=== PATIENT | female | born 1945 | race Caucasian/White ===

== ENCOUNTER 2025-03-31 08:31 | Outpatient (AMB) | payer MEDICARE, MEDICAID, SELFPAY ==
--- NOTE | 2025-03-31 08:34 | A.OFFVIS_ITS ---
Vital Signs 03/31/25 08:35 Height 5 ft 1 in Weight 143 lb BMI 27.0 BP 140/65 H Blood Pressure Location Lt brachial Position Sitting Respiration 16 Pulse 96 Pulse Source Pulse Oximeter Pulse Oximetry (%) 95 Oxygen Delivery Method Room Air Intake Visit Reasons: Back pain Windscreen Fitter Required: No Accompanied by: Daughter Allergies acetaminophen (From Tylenol) Allergy (Mild, Verified 03/31/25 08:43) Unknown amoxicillin Allergy (Mild, Verified 03/31/25 08:42) Unknown aspirin Allergy (Mild, Verified 03/31/25 08:42) Unknown cefaclor (From Ceclor) Allergy (Mild, Verified 03/31/25 08:42) Unknown codeine Allergy (Mild, Verified 03/31/25 08:42) Unknown erythromycin base Allergy (Mild, Verified 03/31/25 08:42) Unknown fleroxacin Allergy (Mild, Verified 03/31/25 08:42) Unknown Iodinated Contrast Media (Contrast Dye) Allergy (Mild, Verified 03/31/25 08:42) Unknown nitrofurantoin (From Macrodantin) Allergy (Mild, Verified 03/31/25 08:42) Unknown Penicillins Allergy (Mild, Verified 03/31/25 08:42) Unknown sulfamethoxazole (From Bactrim) Allergy (Mild, Verified 03/31/25 08:42) Unknown tetracycline Allergy (Mild, Verified 03/31/25 08:42) Unknown trimethoprim (From Bactrim) Allergy (Mild, Verified 03/31/25 08:42) Unknown HPI Comments Details: The patient is a 79-year-old female presenting with chronic thoracic back pain. The pain is located in the middle to upper back, around the bra line, and has been present for a couple of years. The patient reports that the pain initially started around the time she had kidney stones and was septic, but it persisted even after the kidney stones were managed. The pain is exacerbated by sitting and is relieved by lying down. The patient has tried various interventions, including skin care therapist and massage therapy, but has not undergone recent physical therapy. The patient has a history of kidney stones, with two stones currently present but not causing obstruction or significant symptoms. She also has a history of Crohn's disease, which does not interfere with the potential for receiving injections. Currently taking oxycodone 5 mg 3 times daily for her Crohn's disease. - Location: Middle to upper back, around the bra line - Duration: Present for a couple of years - Exacerbating factors: Sitting - Relieving factors: Lying down - Affect: No specific impact on mood or psychological wellbeing discussed - Analgesia: No current pain medications discussed - Adverse Effects: No side effects from pain medications discussed - Activities of Daily Living: Pain affects ability to sit for long periods, requiring lying down during work shifts - Aberrant Drug Related Behaviors: No signs of medication abuse or misuse discussed [facility] Medical History (Updated 03/31/25 @ 12:42 by Lucia Scherer APRN, WORKERS COMPENSATION ADMINISTRATOR) Acute Crohn's disease Small bowel fistula History of gastrectomy Breast cancer, left Diverticulitis S/p small bowel obstruction Medical marijuana use Pulmonary embolism Recurrent UTI Chronic diarrhea Hernia of abdominal cavity GERD (gastroesophageal reflux disease) Breast nodule Surgical History (Updated 03/31/25 @ 09:45 by Bere Castro MA) Hx of ileostomy H/O lithotripsy S/P gastroplasty Hx of appendectomy S/P cholecystectomy S/P lumpectomy of breast History of creation of ostomy Review of Systems Const Details: - Musculoskeletal: Reports chronic back pain, denies tenderness upon palpation - Genitourinary: Reports history of kidney stones, currently not obstructive Physical Exam Vital Signs: Last Vital Signs Pulse 96 03/31/25 08:35 Resp 16 03/31/25 08:35 BP 140/65 H 03/31/25 08:35 Pulse Ox 95 03/31/25 08:35 Oxygen Delivery Method Room Air 03/31/25 08:35 BMI result Body Mass Index 27.0 General: awake, alert, oriented. Answers questions appropriately. Fully engaged in examination. Skin: warm, dry, intact HEENT: Normocephalic. Hearing intact. Cardiac: External chest normal in appearance. Respiratory: No cough, audible wheezing or stridor. Abdomen: without gross distension. MS: No obvious swelling or deformities. Able to stand on bilateral tiptoes and bilateral heels.? Able to transition from sit to stand unassisted. Ambulates with bilaterally normal heel strike and toe off Tenderness to palpation midline thoracic vertebrae and paraspinal muscles Valsalva negative Poor posture Neurological: Oriented to person, place, time and situation. Thought process intact. No gait abnormalities appreciated. Psychiatric: Appropriate mood and affect. Good judgment and insight. Assessment & Plan Assessment & Plan (1) Thoracic back pain: Code(s): M54.6 - Pain in thoracic spine Category: Medical (2) Chronic pain syndrome: Code(s): G89.4 - Chronic pain syndrome Category: Medical (3) Thoracic spondylosis: Code(s): M47.814 - Spondylosis without myelopathy or radiculopathy, thoracic region Category: Medical Plan The plan for managing the patient's chronic back pain includes considering physical therapy as a non-invasive option, which is beneficial for posture and muscle strengthening. If the patient decides to pursue interventional pain management, diagnostic injections may be performed to assess the source of pain, followed by potential therapeutic injections or nerve stimulation if effective. The patient is advised to sign releases for previous imaging studies to be included in her chart, facilitating future treatment decisions. Patient is not interested in discussing or proceeding with injections at this time Order placed for PT eval and treat, patient requesting [facility] in [place] due to proximity to her home. Patient was informed and verbally consented to the use of an ambient scribe for clinic note documentation during this visit. Orders: Orders PT Evaluation and Treatment Today M47.814 - Spondylosis without myelopathy or radiculopathy, thoracic region, M54.6 - Pain in thoracic spine Patient Instructions: - Start physical therapy to help with posture and muscle strengthening. - If interested in injections, contact the clinic to discuss further steps and insurance approval. - Sign releases for previous imaging studies to be included in your chart. Coding Level of Care Code New Pt Level 4 (79632) Complex EM visit Add On G2211 Diagnoses Thoracic back pain M54.6 Chronic pain syndrome G89.4 Thoracic spondylosis M47.814
[2025-03-31 08:35] VITALS: BP 140/65; PULSE 96; RESP 16; O2SAT 95; BMI 27.0
--- OUTSIDE RECORDS SUMMARY | 2025-03-31 08:37 | XMS_ITS | Clinical Summary ---
Author Organization [address] [facility] Address [address] [place] [address] Phone Care Team Providers Care Entry Level Accounting Clerk Name Role Phone Sloan Chinchilla Primary Care Provider [phone] Allergies Active Allergy Reactions Criticality Noted Date Comments Amoxicillin Rash 02/16/2025 Aspirin GI intolerance,Rash,Na usea And Vomiting Low 10/19/2016 Cephalosporins Diarrhea,Other,Rash ,Night sweats Low 05/13/2007 Other Reaction(s): chest palpitations Tolerates Unasyn August 2017 tolerates ceftriaxone Erythromycin Rash Low 09/24/2008 Floxuridine Rash 02/16/2025 Iodinated Contrast Media Anaphylaxis High 10/19/2016 Iodine 06/24/2017 Levofloxacin Rash Low 10/18/2022 Loperamide 04/07/2015 Nitrofurantoin Macrocrystal Rash 02/16/2025 Morphine Shortness of breath High 05/13/2007 causes hallucinations Ofloxacin Rash 05/13/2007 Penicillins Rash Low 05/13/2007 Tolerates Unasyn August 2017 Tolerated amoxicillin test dose and augmentin 10/19/2022 Secobarbital 04/07/2015 Sulfamethoxazole-Trime thoprim Rash Low 07/03/2006 Other reaction(s): Rash Tetracycline Rash 02/16/2025 Tetracyclines Nausea And Vomiting,Rash Low 09/24/2008 Doxycycline Hyclate Rash 02/16/2025 Medications METHOTREXATE ORAL Take by mouth. Activ e inFLIXimab (REMICADE/UNBRA NDED) 100 mg injection Infuse into a venous catheter. Active fluticasone propionate (FLONASE) 50 mcg/actuation nasal spray Administer 1 spray into each nostril 1 (one) time each day. Shake gently. Before first use, prime pump. After use, clean tip and replace cap. Active ascorbic acid/collagen hydr (COLLAGEN SKIN RENEWAL ORAL) Take by mouth. Activ e cyanocobalamin (VITAMIN B-12) 1,000 mcg tablet Take 1 tablet (1,000 mcg total) by mouth 1 (one) time each day. Active MULTIVITAMIN ORAL Take by mouth 1 (one) time each day. Active albuterol HFA (PROAIR HFA ; PROVENTIL HFA ; VENTOLIN HFA) 90 mcg/actuation inhaler Inhale 1 puff by mouth every 4 (four) hours if needed for wheezing. Active calcium citrate-vitamin D 250 mg-2.5 mcg (100 unit) per tablet Take 1 tablet by mouth 1 (one) time each day. Active folic acid (FOLVITE) 400 mcg tablet Take by mouth 1 (one) time each day. Active zinc gluconate 50 mg tablet Take 1 tablet (50 mg total) by mouth 2 (two) times a day. Active cholecalciferol (VITAMIN D-3) 50 mcg (2,000 unit) tablet Take 1 tablet (2,000 Units total) by mouth 1 (one) time each day. Active fexofenadine (PAUL) 60 mg tablet Take 1 tablet (60 mg total) by mouth 2 (two) times a day. Active nystatin (MYCOSTATIN) 100,000 unit/gram powder Apply topically 2 (two) times a day. Active magnesium oxide (MAG-OX) 400 mg magnesium tablet Take 1 tablet (400 mg total) by mouth 1 (one) time each day. Active oxyCODONE (ROXICODONE) 5 mg immediate release tabletIndicatio ns:DX: G89.4 Take 1 tablet (5 mg total) by mouth every 8 (eight) hours. Active vitamin B complex (B COMPLEX-VITAMIN B12 ORAL) Take by mouth 1 (one) time each day. Active pyridoxine (B-6) 100 mg tablet Take 1 tablet (100 mg total) by mouth 1 (one) time each day. Active PUMPKIN SEED EXTRACT ORAL Take by mouth. Ac tive BLACK SEED ORAL Take by mouth. And oregano oil Active Active Problems Problem Noted Date Diagnosed Date Hyperlipidemia 12/31/2023 Osteoarthritis of multiple joints 12/31/2023 Vitamin D deficiency 12/31/2023 Transaminitis 11/06/2022 Steroid-induced hyperglycemia 10/31/2022 Hepatic steatosis 10/25/2022 Low back pain 10/25/2022 Crohn's disease with fistula ([facility] V24, [facility] V28) 10/24/2022 TIA (transient ischemic attack) 11/26/2021 Atelectasis 01/25/2020 Centrilobular emphysema ([facility] V24, [facility] V2 8) 01/25/2020 Pulmonary nodules 02/05/2019 Chronic obstructive pulmonar y disease ([facility] V24, [facility] V28) 12/08/2018 History of partial colectomy 10/10/2018 Mild intermittent asthma with exacerbation 10/10 Pneumonia due to organism 10/10/2018 Protein deficiency ([facility] V24) 10/10/2018 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 Systemic inflammatory respon se syndrome (SIRS) due to non-infectious process without acute organ dysfunction ([facility] V24, [facility] V28) 08/30/2017 Systemic inflammatory respon se syndrome due to infect w organ dysfunc ([facility] V24, [facility] V28) 08/21/2017 Status post skin graft 08/20/2017 Clostridium difficile colitis 08/14/2017 Undernutrition 06/25/2017 Abnormal weight loss 06/20/2017 Adult failure to thrive syndrome 06/20/2017 Fistula of intestine 06/20/2017 Urinary tract infectious disease 06/20/2017 Anemia 05/25/2017 Overview (02/17/2025): Last Assessment & Plan: Follow Open wound of abdomen 05/25/2017 Overview (02/17/2025): Last Assessment & Plan: Patient is now tolerating the wound VAC at reduced vacuum 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 Chronic diarrhea of unknown origin 10/08/2011 Ventral hernia 04/06/2011 Diarrhea 09/24/2008 Diverticulitis of colon 05/13/2007 Overview (02/17/2025): Surgery with colostomy 2004, colostomy reversal 2005. Malignant neoplasm of female breast ([facility] V24, [facility] V28) 05/13/2007 Overview (02/17/2025): history of lumpectomy with negative sentinel node biopsy 2005, left breast. O update Pulmonary embolism and infar ction ([facility] V24, [facility] V28) 05/13/2007 Overview (02/17/2025): history of pulmonary embolism, chronic anticoagulation with warfarin. Encounters Date Type Department Care Team Description 02/17/2025 8:40 AM EDT Consult Gastroenterology - [place] [address] [facility] [address] [place] [address] Ger Stanton MD Enterocutaneous fistula (Primary Dx); Crohn's disease of both small and large intestine with fistula ([facility] V24, [facility] V28); Ventral hernia without obstruction or gangrene from Last 3 Months Surgical History Surgery Date Site/Laterality Comments OTHER SURGICAL HISTORY 09/16/2004 PROCEDURE: IA COLOSTOMY/SKIN LEVEL CECOSTOMY; COMMENT: Bowel resection with colostomy OTHER SURGICAL HISTORY 09/16/2005 PROCEDURE: IA CLOSURE ENTEROSTOMY LG/SMALL INTESTINE; COMMENT: Colostomy closure COLONOSCOPY 09/16/2005 PROCEDURE: HISTORICAL COLONOSCOPY; COMMENT: Performed around the time of her surgeries. BREAST LUMPECTOMY 07/17/2005 PROCEDURE: HISTORICAL BREAST LUMPECTOMY; COMMENT: Node biopsy negative CHOLECYSTECTOMY PROCEDURE: HISTORICAL CHOLECYSTECTOMY APPENDECTOMY PROCEDURE: HISTORICAL APPENDECTOMY OTHER SURGICAL HISTORY PROCEDURE: HISTORY OTHER; COMMENT: Gastroplasty Medical History Medical History Date Comments Diverticulitis of colon (wit hout mention of hemorrhage)(562.11) 05/13/2007 DX:Diverticulitis of co apolinar (without mention of hemorrhage)(562.11); COMMENT: Surgery with colostomy 2004, colostomy reversal 2005. Other pulmonary embolism and infarction 05/13/2007 DX:Other pulmonary embolism and infarction; COMMENT: history of pulmonary embolism, chronic anticoagulation with warfarin. Malignant neoplasm of breast (female), unspecified site 05/13/2007 DX:Malignant neoplasm of br east (female), unspecified site; COMMENT: history of lumpectomy with negative sentinel node biopsy 2006, left breast. Chronic airway obstruction, not elsewhere classified 05/13/2007 DX:Chronic airway obstructio n, not elsewhere classified; COMMENT: emphysema. Breast nodule DX:Breast nodule Family History Medical History Relation Name Comments Other: Heart Disease, Unspecified Father Other: Heart Disease, Unspecified Paternal Grandfather Other: Heart Disease, Unspecified Paternal Grandmother Colon cancer Neg Hx Relation Name Status Comments Father Paternal Grandfather Paternal Grandmother Social History Tobacco Use Types Packs/Day Years Used Date Smoking Tobacco: Former Cigarettes Q uit: 04/04/2005 Smokeless Tobacco: Never Tobacco Cessation:Counseling Given: Not Answered Alcohol Use Standard Drinks/Week Comments No 0 (1 standard drink = 0.6 oz pur e alcohol) Comments Unknown Sex and Gender Information Value Date Recorded Sex Assigned at Not on file Legal Sex Female 7:28 AM EST Gender Identity Not on file Sexual Orientation Not on file Obstetrics History Last Filed Vital Signs Vital Sign Reading Time Taken Comments Blood Pressure 122/62 02/17/2025 8:38 AM EDT Pulse 87 02/17/2025 8:38 AM EDT Temperature - - Respiratory Rate - - Oxygen Saturation 95% 02/17/2025 8:38 AM EDT Inhaled Oxygen Concentration - - Weight 65.7 kg (144 lb 12.8 oz) 025 8:38 AM EDT Height 157.5 cm (5' 2 ) 02/17/2025 8:38 AM EDT Body Mass Index 26.48 02/17/2025 8:38 AM EDT Plan of Treatment Health Maintenance Due Date Last Done Comments COVID-19 Vaccine (#1) 1950 DTaP,Tdap,and Td Vaccines (1 - Tdap) 1964 Hepatitis A Vaccines (1 of 2 - Risk 2-dose series) 1964 Pneumococcal Vaccine: 50+ Years (1 of 2 - PCV) 1964 Zoster Vaccines (1 of 2) 1964 Hepatitis B Vaccines (1 of 3 - Risk 3-dose series) 2005 RSV Immunization Adult Patients (1 - 1-dose 75+ series) 2020 Falls Risk Assessment 08/19/2022 Medicare Annual Wellness Visit 08/19/2022 Osteoporosis Screening (Bone Density Screening) 08/19/2022 Social Influencers of Health Screening 08/19/2022 Depression Screening 09/16/2024 Influenza Vaccine (#1) 2025 06/15/2019 Hypertension/CHF/CAD Annual BMP Blood Test 08/17/2025 08/17/2024, 07/20/2024, 06/22/2024, Additional history exists Cholesterol Screening (Lipid Panel) 10/20/2027 10/20/2022 Hepatitis C Screening Completed 10/20/2022 HIB Vaccines Aged Out No longer eligi ble based on patient's age to complete this topic HPV Vaccines Aged Out No longer eligi ble based on patient's age to complete this topic IPV Vaccines Aged Out No longer eligi ble based on patient's age to complete this topic MMR Vaccines Aged Out No longer eligi ble based on patient's age to complete this topic Meningococcal ACWY Vaccine Aged Out N o longer eligible based on patient's age to complete this topic Meningococcal B Vaccine Aged Out No l onger eligible based on patient's age to complete this topic RSV Immunization Patients Under 20 months Aged Out No longer eligible based on patient's age to complete this topic Varicella Vaccines Aged Out No longer eligible based on patient's age to complete this topic Insurance MEDICAID - [place] MEDICARE Care Teams Entry Level Accounting Clerk Relationship Specialty Start Date End Date Sloan Chinchilla PA [address] [place] [address] PCP - General Physician Health Club Manager 01/13/25
--- OUTSIDE RECORDS SUMMARY | 2025-03-31 08:37 | XMS_ITS | Clinical Summary ---
Author Organization [facility] Address [address] [place] [address] Care Team Providers Care Rn Admission Name Role Phone Unavailable Primary Care Provider Unavailabl e Social History Tobacco Use Types Packs/Day Years Used Date Smoking Tobacco: Never Assessed Comments Unknown Sex and Gender Information Value Date Recorded Sex Assigned at Not on file Legal Sex Female 11:30 PM EDT Gender Identity Not on file Sexual Orientation Not on file Plan of Treatment Health Maintenance Due Date Last Done Comments Hepatitis C Virus Screening 1945 DTaP/Tdap/Td Vaccines (1 - Tdap) 1964 Pneumococcal Vaccines 50+ (1 of 1 - PCV) 11/20/1995 Zoster (Shingles) Vaccine (1 of 2) 11/20/1995 RSV Vaccine 60 years and old er and Patients (1 - 1-dose 75+ series) 2020 COVID-19 Vaccine (2023-2 5 season) 2024 Hepatitis B Vaccines Aged Out No long er eligible based on patient's age to complete this topic
--- OUTSIDE RECORDS SUMMARY | 2025-03-31 08:37 | XMS_ITS ---
Author Name [facility] Organization Unknown Encounters Encounter Type Encounter Reason Primary Diagnosis Location Date Ambulatory [facility] 12/30/2024 Ambulatory [facility] 12/30/2024 Ambulatory [facility] 10/22/2024 Ambulatory [facility] 10/22/2024 Care Team Organization Name Specialty Phone Email Start Date End Da te [facility] 2024
--- OUTSIDE RECORDS SUMMARY | 2025-03-31 08:37 | XMS_ITS | Clinical Summary ---
Author Organization [facility] Address [address] [place] [address] Care Team Providers Care Planning Division Superintendent Name Role Phone Unavailable Primary Care Provider Unavailabl e Allergies Active Allergy Reactions Criticality Noted Date Comments Amoxicillin 05/13/2007 Aspirin 10/19/2016 Cephalosporins 10/19/2016 Tolerates Unasyn August 2017 Codeine Nausea And Vomiting 10/19/2016 Erythromycin Rash Low 10/19/2016 Iodinated Contrast Media 10/19/2016 Loperamide 10/19/2016 Morphine 10/19/2016 Nitrofurantoin 10/19/2016 Ofloxacin 10/19/2016 Penicillins Rash Low 10/19/2016 Tolerates Unasyn August 2017 Secobarbital 10/19/2016 Sulfamethoxazole-Trimetho prim Rash Low 10/19/2016 Tetracyclines & Related Rash Low 10/19/2016 Medications Medication Sig Dispensed Refills Start Date End Date Status vitamin C (ASCORBIC ACID) 500 MG tablet Take 500 mg by mouth. 0 06/20/2017 Active budesonide (PULMICORT) 0.5 MG/2ML nebulizer solutionIndications :Mild intermittent asthma with exacerbation Take 2 mL (0.5 mg total) by nebulization daily. 60 mL 12 09/19/2018 Active ketoconazole (NIZORAL) 2 % creamIndications:Pr uritus ani Apply topically daily. 60 g 0 09/19/2018 Active oxyCODONE (ROXICODONE) 5 MG immediate release tabletIndications:c hronic diarrhea Take 5 mg by mouth 3 (three) times a day. 0 Active magnesium oxide 400 (240 Mg) MG TABS tablet TAKE 1 TABLET BY MOUTH DAILY 28 tablet 0 04/03/2022 Active Active Problems Problem Noted Date Diagnosed Date Hx of abdominal surgery 10/10/2018 Chronic diarrhea 10/10/2018 History of partial colectomy 10/10/2018 Protein deficiency 10/10/2018 Pneumonia due to organism 10/10/2018 Mild intermittent asthma with exacerbation 10/10 Systemic inflammatory respon se syndrome due to infect w organ dysfunc 08/21/2017 Status post skin graft 08/20/2017 Anemia 05/25/2017 Overview: Last Assessment & Plan: Follow Open abdominal wall wound, subsequent encounter 05/25/2017 Overview: Last Assessment & Plan: Patient is now tolerating the wound VAC at reduced vacuum Enterocutaneous fistula 04/29/2017 Overview: Last Assessment & Plan: Stable, surgical follow up. Social History Tobacco Use Types Packs/Day Years Used Date Smoking Tobacco: Never Assessed Social Connection and Isolat ion Panel [NHANES] Answer Date Recorded In a typical week, how many times do you talk on the phone with family, friends, or neighbors? More than three times a week 05/05/2024 How often do you get togethe r with friends or relatives? More than three times a week 05/05/2024 Attends Shinto Services Not on file 05/05 Active Member of Clubs or Organizations Not on f ile 05/05/2024 Attends Club or Organization Meetings Not on zulma e 05/05/2024 Marital Status Not on file 05/05/2024 Overall Financial Resource Strain (CARDIA) Answe r Date Recorded How hard is it for you to pa y for the very basics like food, housing, medical care, and heating? Somewhat hard 05/05/2024 Hunger Vital Sign Answer Date Recorded Within the past 12 months, y ou worried that your food would run out before you got the money to buy more. Sometimes true Within the past 12 months, t he food you bought just didn't last and you didn't have money to get more. Sometimes true PRAPARE - Transportation Answer Date Re corded In the past 12 months, has l ack of transportation kept you from medical appointments or from getting medications? No 04/17 In the past 12 months, has l ack of transportation kept you from meetings, work, or from getting things needed for daily living? No 05/05/2024 Sex and Gender Information Value Date Recorded Sex Assigned at Female 09/19/2018 1:03 PM EST Gender Identity Female 09/19/2018 1:03 PM EST Sexual Orientation Straight 09/19/2018 1: 03 PM EST Last Filed Vital Signs Vital Sign Reading Time Taken Comments Blood Pressure 110/70 10/10/2018 12:37 PM EST Pulse 96 10/10/2018 12:37 PM EST Temperature - - Respiratory Rate 16 10/10/2018 12:3 7 PM EST Oxygen Saturation 93% 09/19/2018 1:00 PM EST room air Inhaled Oxygen Concentration - - Weight 69.8 kg (153 lb 12.8 oz) 019 12:37 PM EST Height 156.2 cm (5' 1.5 ) 10/10/2018 12 :37 PM EST Body Mass Index 28.59 10/10/2018 12:37 PM EST Plan of Treatment Health Maintenance Due Date Last Done Comments COVID-19 Vaccine (#1) 05/22/1946 Pneumococcal Vaccine (1 of 2 - PCV) 11/20/1951 Depression Screening 1957 Preventative Health Evaluation 11/20/1963 DTap / Tdap / Td (1 - Tdap) 1964 Shingrix-Zoster Vaccine (1 of 2) 11/20/1995 Fall Risk Assessment 2010 Osteoporosis Screening (DEXA Scan) 2010 RSV Adult > 60+ Yrs or Pregn ant (1 - 1-dose 75+ series) 2020 Influenza Vaccine (#1) 2025 Hepatitis C Screening Completed 10/20/2022 Hepatitis B Vaccines Aged Out No long er eligible based on patient's age to complete this topic RSV Ped < 20 months Aged Out No longe r eligible based on patient's age to complete this topic
--- OUTSIDE RECORDS SUMMARY | 2025-03-31 08:37 | XMS_ITS | Patient Health Record ---
[facility] [address] Address [address] [place] [address] Care Team Providers Care Manager Surgery Name Role Phone CINTRONLOYDA VÁSQUEZ Primary Care Provider SLOAN GARCIA Unavailable [phone] RAAD CAMPBELL Unavailable [phone] XENA BERGERON Unavailable [phone] Allergies Allergen (clinical drug ingredient) Drug/Non Drug Allergy documented on EMR Reaction Allergy Type Onset Date Status aspirin Aspirin Unknown Drug Allergy Active sulfamethoxazole / trimethoprim Bactrim rash Drug Allergy Active erythromycin Erythromycin rash Drug Allergy A ctive Floxin Otic rash Drug Allergy Activ e floxuridine Floxuridine rash Drug Allergy Act carmen Levaquin rash Drug Allergy Active nitrofurantoin Macrodantin rash Drug Allergy Active morphine Morphine Sulfate shortness of breath Drug Allergy Active penicillin G Penicillin G Sodium rash Drug Allergy Active tetracycline Tetracycline HCl rash Drug Allergy Active Vibramycin rash Drug Allergy Active Contrast Allergy PreMed Pack sob Drug Allergy Active amoxicillin Amoxicillin rash Drug Allergy Act carmen tetracycline Tetracycline rash Drug Allergy A ctive Results Component Value Reference Range Notes Comp. Metabolic Panel (14)-3 [id number] Reviewed date:02/05/2025 09:04:15 AM Interpretation: Performing Lab:Kat Soto, [address], [place], Phone - [phone], Director - Hakan Notes/Report: Glucose 92 70-99 mg/dL BUN 17 8-27 mg/dL Creatinine 1.28 0.57-1.00 mg/dL eGFR 43 >59 mL/min/1.73 BUN/Creatinine Ratio 13 12-28 Sodium 142 134-144 mmol/L Potassium 4.3 3.5-5.2 mmol/L Chloride 108 96-106 mmol/L Carbon Dioxide, Total TNP Test n ot performed. Deterioration occurred during specimen handling. Calcium 9.2 8.7-10.3 mg/dL Protein, Total 7.7 6.0-8.5 g/dL Albumin 3.6 3.8-4.8 g/dL Globulin, Total 4.1 1.5-4.5 g/dL Bilirubin, Total <0.2 0.0-1.2 mg/dL Alkaline Phosphatase 111 44-121 IU/L AST (SGOT) 23 0-40 IU/L ALT (SGPT) 14 0-32 IU/L Lipid Panel-[id number] Reviewed date:02/05/2025 08:08:08 AM Interpretation: Performing Lab:Kat Soto, [address] [facility], Phone - [phone], Director - MDJodry Notes/Report: Cholesterol, Total 130 100-199 mg/dL Triglycerides 153 0-149 mg/dL HDL Cholesterol 43 >39 mg/dL VLDL Cholesterol [place] 26 5-40 mg/dL LDL Chol Calc (NIH) 61 0-99 mg/dL CBC With Differential/Platel et-[id number] Reviewed date:02/05/2025 08:07:59 AM Interpretation: Performing Lab:Kat Soto, [address] [place] [address], [place], Phone - [phone], Director - MDJodry Notes/Report: WBC 8.6 3.4-10.8 x10E3/uL RBC 4.85 3.77-5.28 x10E6/uL Hemoglobin 11.8 11.1-15.9 g/dL Hematocrit 38.2 34.0-46.6 % MCV 79 79-97 fL MCH 24.3 26.6-33.0 pg MCHC 30.9 31.5-35.7 g/dL RDW 15.7 11.7-15.4 % Platelets 276 150-450 x10E3/uL Neutrophils 61 Not Estab. % Lymphs 25 Not Estab. % Monocytes 8 Not Estab. % Eos 5 Not Estab. % Basos 1 Not Estab. % Neutrophils (Absolute) 5.3 1.4-7.0 x10E3/uL Lymphs (Absolute) 2.1 0.7-3.1 x10E3/uL Monocytes(Absolute) 0.6 0.1-0.9 x10E3/uL Eos (Absolute) 0.5 0.0-0.4 x10E3/uL Baso (Absolute) 0.1 0.0-0.2 x10E3/uL Immature Granulocytes 0 Not Estab. % Immature Grans (Abs) 0.0 0.0-0.1 x10E3/uL Urinalysis, Complete-[id number] Reviewed date:07/09/2024 08:09:26 AM Interpretation: Performing Lab[facility], [address] [place] [address], Phone - [phone], Director - MDJodry Notes/Report: Specific [place] 1.021 1.005-1.030 pH 5.5 5.0-7.5 Urine-Color Yellow Yellow Appearance Clear Clear WBC Esterase 2+ Negative Protein Trace Negative/Trace Glucose Negative Negative Ketones Negative Negative Occult Blood Negative Negative Bilirubin Negative Negative Urobilinogen,Semi-Qn 0.2 0.2-1.0 mg/dL Nitrite, Urine Negative Negative Microscopic Examination See below: Micr oscopic was indicated and was performed. WBC >30 0 - 5 /hpf RBC None seen 0 - 2 /hpf Epithelial Cells (non renal) 0-10 0 - 10 /hpf Casts None seen None seen /lpf Bacteria None seen None seen/Few Urinalysis, Complete-[id number] Reviewed date:02/05/2025 08:08:08 AM Interpretation: Performing Lab:[facility] [address], Phone - [phone], Director - MDdry Notes/Report: Specific [place] 1.017 1.005-1.030 pH 5.5 5.0-7.5 Urine-Color Yellow Yellow Appearance Clear Clear WBC Esterase 1+ Negative Protein 1+ Negative/Trace Glucose Negative Negative Ketones Negative Negative Occult Blood Negative Negative Bilirubin Negative Negative Urobilinogen,Semi-Qn 0.2 0.2-1.0 mg/dL Nitrite, Urine Negative Negative Microscopic Examination See below: Micr oscopic was indicated and was performed. WBC 6-10 0 - 5 /hpf RBC 0-2 0 - 2 /hpf Epithelial Cells (non renal) 0-10 0 - 10 /hpf Casts None seen None seen /lpf Crystals Present N/A Crystal Type Calcium Oxalate N/A Bacteria None seen None seen/Few Hemoglobin [id number] Reviewed date:02/05/2025 08:08:08 AM Interpretation: Performing Lab:[facility] [place], [address] [place] [address], Phone - [phone], Director - Katelyny Notes/Report: Hemoglobin A1c 6.2 4.8-5.6 % . Prediabetes: 5.7 - 6.4 Diabetes: >6.4 Glycemic control for adults with diabetes: <7.0 Comp. Metabolic Panel (14)-3 Reviewed date:06/15/2024 07:56:00 AM Interpretation: Performing Lab:[facility] [place], [address] [place] [address], Phone - [phone], Director - Katelyny Notes/Report: Glucose 114 70-99 mg/dL BUN 24 8-27 mg/dL Creatinine 1.00 0.57-1.00 mg/dL eGFR 58 >59 mL/min/1.73 BUN/Creatinine Ratio 24 12-28 Sodium 140 134-144 mmol/L Potassium 4.5 3.5-5.2 mmol/L Chloride 105 96-106 mmol/L Carbon Dioxide, Total 16 20-29 mmol/L Calcium 9.1 8.7-10.3 mg/dL Protein, Total 7.8 6.0-8.5 g/dL Albumin 4.0 3.8-4.8 g/dL Globulin, Total 3.8 1.5-4.5 g/dL Bilirubin, Total <0.2 0.0-1.2 mg/dL Alkaline Phosphatase 101 44-121 IU/L AST (SGOT) 36 0-40 IU/L ALT (SGPT) 27 0-32 IU/L Prealbumin-[id number] Reviewed date:06/15/2024 07:55:43 AM Interpretation: Performing Lab:[facility], [place], Phone - [phone], Director - Hakan Notes/Report: Prealbumin 15 9-32 mg/dL CBC With Differential/Platel et-[id number] Reviewed date:06/15/2024 07:55:53 AM Interpretation: Performing Lab:[facility], [place], Phone - [phone], Director - Katelyny Notes/Report: WBC 9.1 3.4-10.8 x10E3/uL RBC 4.38 3.77-5.28 x10E6/uL Hemoglobin 11.8 11.1-15.9 g/dL Hematocrit 38.6 34.0-46.6 % MCV 88 79-97 fL MCH 26.9 26.6-33.0 pg MCHC 30.6 31.5-35.7 g/dL RDW 14.5 11.7-15.4 % Platelets 198 150-450 x10E3/uL Neutrophils 52 Not Estab. % Lymphs 35 Not Estab. % Monocytes 8 Not Estab. % Eos 4 Not Estab. % Basos 1 Not Estab. % Neutrophils (Absolute) 4.8 1.4-7.0 x10E3/uL Lymphs (Absolute) 3.2 0.7-3.1 x10E3/uL Monocytes(Absolute) 0.7 0.1-0.9 x10E3/uL Eos (Absolute) 0.4 0.0-0.4 x10E3/uL Baso (Absolute) 0.1 0.0-0.2 x10E3/uL Immature Granulocytes 0 Not Estab. % Immature Grans (Abs) 0.0 0.0-0.1 x10E3/uL Magnesium-[id number] Reviewed date:06/15/2024 07:55:43 AM Interpretation: Performing Lab:Kat Soto, [address] [place] [address], Phone - [phone], Director - MDJodry Notes/Report: Magnesium 1.7 1.6-2.3 mg/dL Triglycerides-[id number] Reviewed date:06/15/2024 07:55:43 AM Interpretation: Performing Lab:Kat Soto [address] [place] [address], Phone - [phone], Director - MDJodry Notes/Report: Triglycerides 92 0-149 mg/dL Phosphorus-[id number] Reviewed date:06/15/2024 07:55:43 AM Interpretation: Performing Lab:Kat Soto, [address] [place] [address], Phone - [phone], Director - MDJodry Notes/Report: Phosphorus 4.1 3.0-4.3 mg/dL Reason For Referral Reason ATI neck and back pa in Diagnosis 1 Neck pain (M54.2) Diagnosis 2 Acute back pain, uns pecified back location, unspecified back pain laterality (M54.9) Referral Organization [facility] [address] Referring Provider First Name RAAD Referring Provider Last Name PARNELL Referring Provider Speciality Preventive Medicine Referred Provider Specialty Physical The rapist General Notes [address] [facility] [address]. Titus Bravo, (p) [phone], (f) [phone] Clinical Notes Roxanne Mcgarry 11:20:25 AM > faxed referral Referral Priority Routine Reason evaluate & treat Diagnosis 1 Oral mucositis (ulce rative), unspecified (K12.30) Referral Organization [facility] [address] [facility] Referring Provider First Name SLOAN Referring Provider Last Name RADHA Referring Provider Speciality Internal edicine Referred Provider Specialty Oral Surgery Clinical Notes Ana Moreno 08/17 09:38:47 AM > faxed pt info to surgery dept at [facility]. f) [phone] p) [phone], Ana Moreno 09/08/2024 11:30:50 AM > [facility] does not have oral surgery, so refaxed pt info to [facility] in [place]. p) [phone] f) [phone], Rachele Pierce 09/29/2024 03:06:51 PM > I called the office, and they informed me that they spoke with the patient on 09/14/24. She declined to schedule an appointment at that time, stating that she was currently in the hospital and would call back when able. However, she has not followed up yet Referral Priority Routine Reason [facility] Diagnosis 1 Atherosclerosis (I70 .90) Referral Organization [facility] Referring Provider First Name SLOAN Referring Provider Last Name RADHA Referring Provider Speciality Internal edicine Referred Provider Specialty [facility] General Notes MARGAUX SLOAN 09/08 09:03:14 AM > referral faxed [phone] Referral Priority Routine Reason evaluate. ? 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 f) [phone] p) [phone], Josh Ana 12/18/2024 01:37:02 PM > pt scheduled for 01-04-25 @ 8:40am in [place] with Macy Stevens PA. Referral Priority Routine Reason evaluate & treat. PC P would like a letter of recommendation regarding proper treatment. Diagnosis 1 Crohn's disease with fistula, unspecified gastrointestinal tract location (K50.913) Referral Organization [facility] Referring Provider First Name SLOAN Referring Provider Last Name RADHA Referring Provider Speciality Internal edicine Referred Provider Specialty Gastroentero logy Clinical Notes Josh Ana 12/17 08:37:30 AM > faxed pt info to Dr. Chance's office. p) [phone] f) [phone], Dion Ortiz 01/19/2025 03:56:19 PM > Spoke with Aidee, booked on February 17 8:30AM Referral Priority Routine Reason Evaluate & Treat P ain Management Recommend steroid injections Diagnosis 1 Arthritis of hand, r ight (M19.041) Diagnosis 2 Back pain, unspecifi ed back location, unspecified back pain laterality, unspecified chronicity (M54.9) Referral Organization [facility] Referring Provider First Name SLOAN Referring Provider Last Name RADHA Referring Provider Speciality Internal edicine Referred Provider Specialty Pain Medicin e General Notes Candis Valladares 0 03/24/2025 10:23:10 AM > Referral to [facility] and faxed, p. , f. [phone] Clinical Notes Candis Valladares 0 03/26/2025 10:22:04 AM > Refaxed Referral Priority Routine Reason Evaluate & Treat Diagnosis 1 Dietary counseling ( Z71.3) Referral Organization [facility] Referring Provider First Name SLOAN Referring Provider Last Name RADHA Referring Provider Speciality Internal edicine Referred Provider Specialty Nutrition General Notes Candis Valladares 0 03/24/2025 10:23:59 AM > Referral to [facility] and faxed, p. [phone], f. [phone] Referral Priority Routine Medications Medication SIG (Take, Route, Frequency, Duration) Notes Start Date End Date Status Fexofenadine HCl 60 MG 1 tablet Orally Twice a day; Duration: 90 days 03/24/2025 Active Vitamin D3 50 MCG (2000 UT) 1 tablet Orally Once a day; Duration: 30 days 07/22/2024 Active Vitamin D3 50 MCG (2000 UT) TAKE (1) CAPSULE BY MOUTH DAILY Active Lidocaine 5 % 1 patch as needed Externally Four times a day; Duration: 15 days 01/05/2025 Active Fluticasone Propionate Active Vitamin B12 1000 MCG 1 tablet Orally Onc e a day; Duration: 90 days Active Nystop 822673 UNIT/GM APPLY 1 APPLICATIO N TOPICALLY TWICE A DAY Active Collagen Active Albuterol Sulfate HFA 108 (90 Base) MCG/ACT 1 puff as needed Inhalation every 4 hrs; Duration: 30 days Active Calcium Citrate-Vitamin D 250-2.5 MG-MCG 1 tablet Orally Once a day; Duration: 90 days 12/20/2022 Active Magnesium Oxide -Mg Supplement 400 (240 Mg) MG TAKE 1 TABLET BY MOUTH ONCE DAILY Active Multivitamin - TAKE 1 TABLET BY MOUTH DAILY. Active oxyCODONE HCl 5 MG 1 tablet as needed Orally - PARTIAL REFILL UPON PATIENT REQUEST every 8 hrs dx: g89.4; Duration: 30 days Partial Fill upon Patient Request 03/10/2025 Active Zinc Gluconate 50 MG TAKE 2 TABLETS BY MOUTH ONCE DAILY. Active Multivitamin - 5 ml Orally Once a day; Duration: 30 day(s) Active Immunizations Vaccine Route Administration Date Status Comme nts Influenza, high dose seasonal IM Intramuscular 06/15/2019 Administered Social History Tobacco Use: Social History Observation Description Date Details (start date - stop date) Former Smoker NA - NA Tobacco Use/Smoking Question Answer Notes Are you a former smoker Section Notes: Quit Smoking 2004 about 2 pk s a day Quit Smoking 2004 about 2 pks a day about 50 years. ETOH Use: declines Tob Use: declines Drug Use: marijuana for sleep, smoking Caffeine Use: declines Smoke detectors in home: Yes Seatbelt use: Yes Living with her daughter, feels safe at home. Quit Smoking 2004 about 2 pk s a day Quit Smoking 2004 about 2 pk s a day Quit Smoking 2004 about 2 pk s a day Quit Smoking 2005 about 2 pk s a day Quit Smoking 2005 about 2 pk s a day Quit Smoking 2005 about 2 pk s a day Quit Smoking 2005 about 2 pk s a day Quit Smoking 2005 about 2 pk s a day Quit Smoking 2005 about 2 pk s a day Quit Smoking 2005 about 2 pk s a day Quit Smoking 2005 about 2 pk s a day Quit Smoking 2005 about 2 pk s a day Quit Smoking 2005 about 2 pk s a day Quit Smoking 2005 about 2 pk s a day Quit Smoking 2005 about 2 pk s a day Quit Smoking 2005 about 2 pk s a day Quit Smoking 2005 about 2 pk s a day Quit Smoking 2005 about 2 pk s a day Quit Smoking 2005 about 2 pk s a day Quit Smoking 2005 about 2 pk s a day Problems Problem Type SNOMED Code ICD Code Onset Dates Problem Status W/U Status Risk Notes Problem Mixed hyperlipidemia (353816206) Mixed hyperlipidemia (E78.2) Active confirmed Problem Chronic pain (08026359) Other chronic pain (G89.29) Active confirmed Problem Essential hypertension (51513569) Essential (primary) hypertension (I10) Active confirmed Problem Chronic sinusitis (88722234) Chronic sinusitis, unspecified (J32.9) Active confirmed Problem Emphysema (85878520) Emphysema, unspecified (J43.9) Active confirmed Problem Inflammatory condition of oral mucous membrane (46590512) Oral mucositis (ulcerative), unspecified (K12.30) Active confirmed Problem Gastro-esophageal reflux disease without esophagitis (646018510) Gastro-esophageal reflux disease without esophagitis (K21.9) Active confirmed Problem Fatty liver (267933446) Fatty (change of) liver, not elsewhere classified (K76.0) Active confirmed Problem Localized, primary osteoarthritis of the hand (958153897) Unilateral primary osteoarthritis of first carpometacarpal joint, right hand (M18.11) Active confirmed Problem Backache (069402629) Dorsalgia, unspecified (M54.9) Active confirmed Problem Pain in right foot (532924017899793) Pain in right foot (M79.671) Active confirmed Problem Pain in left foot (140866843027586) Pain in left foot (M79.672) Active confirmed Problem Screening for malignant neoplasm of breast (152099033) Encounter for screening mammogram for malignant neoplasm of breast (Z12.31) Active confirmed Problem Backache (976954409) Back pain, unspecified back location, unspecified back pain laterality, unspecified chronicity (M54.9) Active confirmed Problem Neck pain (10083989) Neck pain (M54.2) Active c onfirmed Problem Hyperlipidaemia (71643280) Hyperlipidemia, unspecified hyperlipidemia type (E78.5) Active confirmed Problem Adult health examination (257916567) Adult general medical exam (Z00.00) Active confirmed Problem Diabetes mellitus screening (288700455) Diabetes mellitus screening (Z13.1) Active confirmed Problem Transient ischemic attack (143958661) TIA (transient ischemic attack) (G45.9) Active confirmed Problem Chronic diarrhea (730964781) Chronic diarrhea (K52.9) Active confirmed Problem COPD - Chronic obstructive pulmonary disease (68885494) Chronic obstructive pulmonary disease, unspecified COPD type (J44.9) Active confirmed Problem Localized, primary osteoarthritis of the pelvic region and thigh (742663432) Osteoarthritis of both hips, 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) Active confirmed Problem Osteoarthritis of multiple joints (071219866) Osteoarthritis of multiple joints, unspecified osteoarthritis type (M15.9) Active confirmed Problem Atherosclerosis (00654710) Atherosclerosis (I70.90) Active confirmed Problem Irregular heart beat (618144997) Irregular heart beat (I49.9) Active confirmed Problem Hypertriglyceridemia (964328579) Hypertriglyceridemia (E78.1) Active confirmed Problem Screening for osteoporosis (876288406) Screening for osteoporosis (Z13.820) Active confirmed Problem Muscle cramp (28714503) Muscle cramp (R25.2) Active confirmed Problem Backache (441904690) Acute back pain, unspecified back location, unspecified back pain laterality (M54.9) Active confirmed Problem Low back pain (497724259) Low back pain, unspecified (M54.50) Active confirmed Problem Crohn's disease (23615782) Crohn's disease with complication, unspecified gastrointestinal tract location (K50.919) Active confirmed Problem Crohn's disease with fistula, unspecified gastrointestinal tract location (K50.913) Active confirmed Problem Vitamin D deficiency (89645299) Vitamin D3 deficiency (E55.9) Active confirmed Problem Anemia screening (366259760) Screening for deficiency anemia (Z13.0) Active confirmed Problem Localized, primary osteoarthritis of the hand (479635528) Arthritis of hand, right (M19.041) Active confirmed Problem Ulcer of mouth (disorder) (15157970) Mouth sore (K13.79) Active confirmed Vital Signs Heart Rate 83 /min 03/24/2025 Temperature 98 degrees Fahrenheit 06/08/2024 Blood pressure diastolic 60 mm Hg 03/24/2025 Oximetry 96 % 03/24/2025 Height 61 in 03/24/2025 Blood pressure systolic 118 mm Hg 03/24/2025 Weight 144.8 lbs 03/24/2025 BMI 27.36 kg/m2 03/24/2025 Encounters Encounter Location Date Provider Diagnosis [facility] [address] [place] [address] 06/08/2024 SLOAN CHANGNER Diarrhea, unspecifie d R19.7 ; Crohn's disease with fistula, unspecified gastrointestinal tract location K50.913 ; Under care of ostomy nurse Z78.9 ; On total parenteral nutrition (TPN) Z78.9 ; Pain in thoracic spine M54.6 ; Other chronic pain G89.29 and Dysuria R30.0 [facility] [address] [place] [address] 07/21/2024 RAAD SHANNAN Mouth sore K13.79 ; Crohn's disease with complication, unspecified gastrointestinal tract location K50.919 ; Chronic diarrhea K52.9 ; Other chronic pain G89.29 ; Low back pain, unspecified M54.50 and Osteoarthritis of both hips, unspecified osteoarthritis type M16.0 [facility] [address] [place] [address] 09/04/2024 SLOAN GARCIA Diarrhea, unspecifie d R19.7 ; Oral ulcer K12.1 ; Crohn's disease with fistula, unspecified gastrointestinal tract location K50.913 ; Under care of ostomy nurse Z78.9 ; On total parenteral nutrition (TPN) Z78.9 ; Pain in thoracic spine M54.6 ; Other chronic pain G89.29 ; Back pain, unspecified back location, unspecified back pain laterality, unspecified chronicity M54.9 and Hordeolum externum of left lower eyelid H00.[address] [facility] [address] [place] [address] 12/14/2024 SLOAN GARCIA Irregular heart beat I49.9 ; Crohn's disease with fistula, unspecified gastrointestinal tract location K50.913 ; Diarrhea, unspecified R19.7 ; Under care of ostomy nurse Z78.9 ; On total parenteral nutrition (TPN) Z78.9 ; Other chronic pain G89.29 and Back pain, unspecified back location, unspecified back pain laterality, unspecified chronicity M54.[address] [facility] [address] [place], [place] 03/24/2025 SLOAN GARCIA Crohn's disease with fistula, unspecified gastrointestinal tract location K50.913 ; Adult general medical exam Z00.00 ; Irregular heart beat I49.9 ; Under care of ostomy nurse Z78.9 ; Other chronic pain G89.29 ; Prediabetes R73.03 ; Hypertriglyceridemia E78.1 and Encounter for examination of blood pressure without abnormal findings Z01.[address] [facility] [address] [place], [place] 03/31/2025 LOYDA CINTRON [facility] [address] [facility] [address] [place], [place] 04/22/2024 SLOAN GARCIA Diarrhea, unspecifie d R19.[address] [facility] [address] [place], [place] 05/25/2024 SLOAN GARCIA Diarrhea, unspecifie d R19.[address] [facility] [address] [place], [place] 06/22/2024 SLOAN GARCIA Diarrhea, unspecifie d R19.[address] [facility] [address] [place], [place] 06/30/2024 SLOAN GARCIA [facility] [address] [place] [address] 07/17/2024 SLOAN GARCIA [facility] [address] [facility] [address] [place], [place] 07/21/2024 LOYDA CINTRON [facility] [address] [facility] [address] [place], [place] 07/22/2024 SLOAN GARCIA Diarrhea, unspecifie d R19.[address] [facility] [address] [place] [address] 07/28/2024 RAAD CAMPBELL [facility] [address] [place] [address] 08/26/2024 SLOAN GARCIA Diarrhea, unspecifie d R19.7 [facility] [address] [facility] [address] [place] [address] 09/05/2024 XENA BERGERON [facility] [address] [place], [place] 09/08/2024 SLOAN GARCIA [facility] [address] [place], [place] 09/28/2024 SLOAN GARCIA Diarrhea, unspecifie d R19.[address] [facility] [address] [place], [place] 11/09/2024 SLOAN GARCIA Diarrhea, unspecifie d R19.[address] [facility] [address] [place] [address] 11/18/2024 SLOAN GARCIA [facility] [address] [facility] [address] [place] [address] 12/07/2024 SLOAN GARCIA Diarrhea, unspecifie d R19.[address] [facility] [address] [place], [place] 01/05/2025 TALAL CINTRON [facility] [address] [facility] [address] [place] [address] 01/08/2025 SLOAN GARCIA Diarrhea, unspecifie d R19.7 [facility] [address] [facility] [address] [place] [address] 01/12/2025 SLOAN GARCIA [facility] [address] [place] 01/12/2025 TALAL CINTRON [facility] [address] [place], [place] 01/29/2025 TALAL CINTRON Diarrhea, unspecifie d R19.[address] [facility] [address] [place], [place] 02/09/2025 SLOAN GARCIA Diarrhea, unspecifie d R19.[address] [facility] [address] [place] [address] 03/10/2025 SLOAN GARCIA Diarrhea, unspecifie d R19.[address] [facility] [address] [place] [address] 03/24/2025 MARIA GANABELLE LINDA Pain in thoracic spi ne M54.[address] [facility] [address] [facility] [place] [address] 03/30/2025 LOYDA CINTRON Assessments Encounter Date Diagnosis (ICD Code) Assessment Notes Treatment Notes Treatment Clinical Notes Section Notes 04/22/2024 Diarrhea, unspecifie d (ICD-10 - R19.7) 05/25/2024 Diarrhea, unspecifie d (ICD-10 - R19.7) 06/08/2024 Diarrhea, unspecifie d (ICD-10 - R19.7) # Ostomy care: Recommended following with gastroenterology/nu rse for this.She does admit to occasional leakage. # Following with specialist to fit dentures properly. # Colitis following with gastroenterology, on methotrexate, infliximab, TPN still in place.Using Aquaphor on ostomy site due to dryness/redness of skin. # Seasonal allergies: On fluticasone, cetirizine # Chronic diarrhea: on oxycodone, recommended by gastroenterology for chronic diarrhea, requesting refill today. [employer] reviewed. Controlled substance contract signed 12/05/2023 # Back pain: Will order x-ray, potentially consider orthopedic referral/pain specialist referral. Discussed conservative treatments. Already on oxycodone for diarrhea.Ordered this back in February for which patient did not obtain. Will reorder image. # Asthma: Takes albuterol as needed # Nystatin powder as needed rash # History of breast cancer, controlled, gets mammograms annually.Ordered today. # UTI symptoms: Urine dip positive for leukocytes. Was recently in the emergency department at [facility] on 05/04/2024. Consistent for UTI treated with Doxy. Patient notes some resolved symptoms but does not physically completely cleared. Urine dip in office consistent with UTI. Will extend course of doxycycline as patient has many antibiotic allergies. Send urine off for culture. Repeat urine post antibiotic use to ensure resolution of infection. 06/08/2024 Crohn's disease with fistula, unspecified gastrointestinal tract location (ICD-10 - K50.913) # Ostomy care: Recommended following with gastroenterology/nu rse for this.She does admit to occasional leakage. # Following with specialist to fit dentures properly. # Colitis following with gastroenterology, on methotrexate, infliximab, TPN still in place.Using Aquaphor on ostomy site due to dryness/redness of skin. # Seasonal allergies: On fluticasone, cetirizine # Chronic diarrhea: on oxycodone, recommended by gastroenterology for chronic diarrhea, requesting refill today. [employer] reviewed. Controlled substance contract signed 12/05/2023 # Back pain: Will order x-ray, potentially consider orthopedic referral/pain specialist referral. Discussed conservative treatments. Already on oxycodone for diarrhea.Ordered this back in February for which patient did not obtain. Will reorder image. # Asthma: Takes albuterol as needed # Nystatin powder as needed rash # History of breast cancer, controlled, gets mammograms annually.Ordered today. # UTI symptoms: Urine dip positive for leukocytes. Was recently in the emergency department at [facility] on 05/04/2024. Consistent for UTI treated with Doxy. Patient notes some resolved symptoms but does not physically completely cleared. Urine dip in office consistent with UTI. Will extend course of doxycycline as patient has many antibiotic allergies. Send urine off for culture. Repeat urine post antibiotic use to ensure resolution of infection. 06/22/2024 Diarrhea, unspecifie d (ICD-10 - R19.7) 07/21/2024 Crohn's disease with complication, unspecified gastrointestinal tract location (ICD-10 - K50.919) Isamar is a 78-year-old female with a PMH of Crohn's disease with persistent diarrhea, seasonal allergies, chronic back pain, osteoarthritis, asthma, previous breast cancer that presents for evaluation of sore in her mouth x3 weeks. #Mouth sore: Patient reports she developed a mouth sore after having molds taken at the dentist approximately 3 weeks ago. On exam there is an ulcer located medially on the lower gumline. It is small and without visible discharge or bleeding. Rx for 4% oral topical lidocaine sent to pharmacy. The patient is encouraged to apply small amount to the affected area up to three times daily as needed for pain. The patient understands not to swallow this medication. There is potential for cross-reactivity due to allergies to Bactrim, morphine, and erythromycin (ingredient benzyl alcohol). Discussed this with the patient, She feels comfortable taking this medication especially given she takes daily cetirizine. She is encouraged to follow-up with the pharmacist to discuss risk for cross reactivity given common ingredient. If the patient chooses not to use topical lidocaine, she is encouraged to continue symptomatic treatment with antimicrobial mouthwashes and salt water gargles. Furthermore the patient is encouraged to follow-up with her dentist office as scheduled to receive properly fitting dentures. #Crohn's/chronic diarrhea: PMH of Crohn's disease, follows with surgery assistant Dr. Tristan Muñoz with [facility]. Receives infliximab infusions once monthly via PICC line for treatment. Additionally the patient has informed to me that she takes oxycodone 10 mg every morning and 5 mg every afternoon for treatment of chronic diarrhea per reccomendation of GI. Prior to starting this regimen she reports as high as 32 episodes of diarrhea daily. On her current regimen she occasionally has stool incontinence overnight. Reports this is problematic as she is prone to treatment resistant UTIs. Interested in 1 additional 5 mg dose of oxycodone daily. As is my first time meeting the patient discussed that I cannot change her current regimen. The patient is encouraged to address this issue with Dr. Hudson and discuss alternative treatment options for diarrhea. #Chronic back pain/osteoarthritis : Patient reports history of chronic back pain osteoarthritis. Denies new/worsening back pain. ROM unchanged. Aside from bowel incontinence secondary to Crohn's disease, denies other bowel/bladder dysfunction. No saddle paresthesias. Takes vitamin D and calcium daily, requesting prescriptions at the patient does not have to pay for these medications. Explained that prescription can be sent, however that does not guarantee that insurance will cover them as they are available OTC. Additionally need to clarify dosing of medication prior to sending refills. Patient will call office to provide doses of calcium and vitamin D. Denies taking combination pill. Patient is unclear on what imaging has been performed of her back and is interested in additional imaging. The patient is encouraged to schedule an additional appointment to address back pain. Furthermore she is encouraged to consider physical therapy -referral provided last year by her PCP Sloan Garcia PA-C. New referral provided today. All questions answered to the patient's satisfaction. Patient demonstrates understanding of diagnosis and treatments discussed. Follow-up at next scheduled appointment, sooner should any questions/concerns arise. Case discussed with collaborating physician Oleg Cintron who has reviewed the assessment/plan. Chart, medications, labs, and vital signs reviewed. Dictation completed with the use of [employer] voice recognition software, prone to medical misidentifications and grammatical errors. All errors are unintentional. Although the practitioner does try to identify and correct errors, some may be present. Please do not hesitate to contact the practitioner for clarification. Total time spent was 30 minutes with >50% on coordination of care and patient education. 07/21/2024 Mouth sore (ICD-10 - K13.79) Isamar is a 78-year-old female with a PMH of Crohn's disease with persistent diarrhea, seasonal allergies, chronic back pain, osteoarthritis, asthma, previous breast cancer that presents for evaluation of sore in her mouth x3 weeks. #Mouth sore: Patient reports she developed a mouth sore after having molds taken at the dentist approximately 3 weeks ago. On exam there is an ulcer located medially on the lower gumline. It is small and without visible discharge or bleeding. Rx for 4% oral topical lidocaine sent to pharmacy. The patient is encouraged to apply small amount to the affected area up to three times daily as needed for pain. The patient understands not to swallow this medication. There is potential for cross-reactivity due to allergies to Bactrim, morphine, and erythromycin (ingredient benzyl alcohol). Discussed this with the patient, She feels comfortable taking this medication especially given she takes daily cetirizine. She is encouraged to follow-up with the pharmacist to discuss risk for cross reactivity given common ingredient. If the patient chooses not to use topical lidocaine, she is encouraged to continue symptomatic treatment with antimicrobial mouthwashes and salt water gargles. Furthermore the patient is encouraged to follow-up with her dentist office as scheduled to receive properly fitting dentures. #Crohn's/chronic diarrhea: PMH of Crohn's disease, follows with surgery assistant Dr. Tristan Muñoz with [facility]. Receives infliximab infusions once monthly via PICC line for treatment. Additionally the patient has informed to me that she takes oxycodone 10 mg every morning and 5 mg every afternoon for treatment of chronic diarrhea per reccomendation of GI. Prior to starting this regimen she reports as high as 32 episodes of diarrhea daily. On her current regimen she occasionally has stool incontinence overnight. Reports this is problematic as she is prone to treatment resistant UTIs. Interested in 1 additional 5 mg dose of oxycodone daily. As is my first time meeting the patient discussed that I cannot change her current regimen. The patient is encouraged to address this issue with Dr. Hudson and discuss alternative treatment options for diarrhea. #Chronic back pain/osteoarthritis : Patient reports history of chronic back pain osteoarthritis. Denies new/worsening back pain. ROM unchanged. Aside from bowel incontinence secondary to Crohn's disease, denies other bowel/bladder dysfunction. No saddle paresthesias. Takes vitamin D and calcium daily, requesting prescriptions at the patient does not have to pay for these medications. Explained that prescription can be sent, however that does not guarantee that insurance will cover them as they are available OTC. Additionally need to clarify dosing of medication prior to sending refills. Patient will call office to provide doses of calcium and vitamin D. Denies taking combination pill. Patient is unclear on what imaging has been performed of her back and is interested in additional imaging. The patient is encouraged to schedule an additional appointment to address back pain. Furthermore she is encouraged to consider physical therapy -referral provided last year by her PCP Sloan Garcia PA-C. New referral provided today. All questions answered to the patient's satisfaction. Patient demonstrates understanding of diagnosis and treatments discussed. Follow-up at next scheduled appointment, sooner should any questions/concerns arise. Case discussed with collaborating physician Oleg Cintron who has reviewed the assessment/plan. Chart, medications, labs, and vital signs reviewed. Dictation completed with the use of [employer] voice recognition software, prone to medical misidentifications and grammatical errors. All errors are unintentional. Although the practitioner does try to identify and correct errors, some may be present. Please do not hesitate to contact the practitioner for clarification. Total time spent was 30 minutes with >50% on coordination of care and patient education. 07/22/2024 Diarrhea, unspecifie d (ICD-10 - R19.7) 08/26/2024 Diarrhea, unspecifie d (ICD-10 - R19.7) 09/04/2024 Diarrhea, unspecifie d (ICD-10 - R19.7) # Ulcer on the lower gumline. Last visit treated with lidocaine, likely secondary to denture molds. Because it is not healing, will refer to oral surgeon for biopsy. # Stye of left eye: Treat with bacitracin ointment. Avoid erythromycin secondary to allergy. Has tried antihistamines for allergic conjunctivitis which was diagnosed by urgent care. Has been dealing with this for a month. If no improvement recommended seeing ophthalmology # Ostomy care: Recommended following with gastroenterology/nu rse for this.She does admit to occasional leakage. # Following with specialist to fit dentures properly. # Colitis following with gastroenterology, on methotrexate, infliximab, TPN still in place.Using Aquaphor on ostomy site due to dryness/redness of skin. # Seasonal allergies: On fluticasone, cetirizine # Chronic diarrhea: on oxycodone, recommended by gastroenterology for chronic diarrhea, requesting refill today. [employer] reviewed. Controlled substance contract signed 12/05/2023 # Back pain: Ordered x-ray last visit for which she did not obtain. Will reorder x-ray. potentially consider orthopedic referral/pain specialist referral. Discussed conservative treatments. Already on oxycodone for diarrhea.Ordered this in February, for which she did not obtain, reordered in May for which she did not obtain. She is still having concerns about back pain, discussed the importance of imaging prior to further treatment. # Asthma: Takes albuterol as needed # Nystatin powder as needed rash # History of breast cancer, controlled, gets mammograms annually.Ordered today. Patient to follow-up in 1 month, follow-up with oral surgeon in the meantime, and treat stye. All quetsions answered to patients satisfaction. Patient verbalized understanding of diagnosis and treatments explained. To call sooner prior to next visit it any questions/concerns arise. Case discussed with collaborating physician Oleg Cintron who reviewed the assessment and plan. Chart, medications, labs, vital signs reviewed. Dictation was accomplished with the use of [employer] voice recognition software, prone to medical misidentifications and grammatical errors. This is unintentional and the practitioner does try to identify and correct these, but some could still be present. Please do not hesitate to contact practitioner for clarification. 09/04/2024 Oral ulcer (ICD-10 - K12.1) # Ulcer on the lower gumline. Last visit treated with lidocaine, likely secondary to denture molds. Because it is not healing, will refer to oral surgeon for biopsy. # Stye of left eye: Treat with bacitracin ointment. Avoid erythromycin secondary to allergy. Has tried antihistamines for allergic conjunctivitis which was diagnosed by urgent care. Has been dealing with this for a month. If no improvement recommended seeing ophthalmology # Ostomy care: Recommended following with gastroenterology/nu rse for this.She does admit to occasional leakage. # Following with specialist to fit dentures properly. # Colitis following with gastroenterology, on methotrexate, infliximab, TPN still in place.Using Aquaphor on ostomy site due to dryness/redness of skin. # Seasonal allergies: On fluticasone, cetirizine # Chronic diarrhea: on oxycodone, recommended by gastroenterology for chronic diarrhea, requesting refill today. [employer] reviewed. Controlled substance contract signed 12/05/2023 # Back pain: Ordered x-ray last visit for which she did not obtain. Will reorder x-ray. potentially consider orthopedic referral/pain specialist referral. Discussed conservative treatments. Already on oxycodone for diarrhea.Ordered this in February, for which she did not obtain, reordered in May for which she did not obtain. She is still having concerns about back pain, discussed the importance of imaging prior to further treatment. # Asthma: Takes albuterol as needed # Nystatin powder as needed rash # History of breast cancer, controlled, gets mammograms annually.Ordered today. Patient to follow-up in 1 month, follow-up with oral surgeon in the meantime, and treat stye. All quetsions answered to patients satisfaction. Patient verbalized understanding of diagnosis and treatments explained. To call sooner prior to next visit it any questions/concerns arise. Case discussed with collaborating physician Oleg Cintron who reviewed the assessment and plan. Chart, medications, labs, vital signs reviewed. Dictation was accomplished with the use of [employer] voice recognition software, prone to medical misidentifications and grammatical errors. This is unintentional and the practitioner does try to identify and correct these, but some could still be present. Please do not hesitate to contact practitioner for clarification. 09/28/2024 Diarrhea, unspecifie d (ICD-10 - R19.7) 11/09/2024 Diarrhea, unspecifie d (ICD-10 - R19.7) 12/07/2024 Diarrhea, unspecifie d (ICD-10 - R19.7) 12/14/2024 Irregular heart beat (ICD-10 - I49.9) # Ulcer on the lower gumline. Resolved. No further workup needed # Patient's at home nurse said that there was a abnormal heartbeat on auscultation. Today in office, normal rate and rhythm with no murmurs, rubs, gallops. EKG showing normal sinus rhythm. Offered cardiac workup with monitor, but patient declines at this time. Discussed emergency department criteria/criteria to call the office # Right hand pain at the base of the thumb, history of steroid injections with hand specialist, patient requesting a referral back to hand specialist.Most likely arthritic. # Ostomy care: Recommended following with gastroenterology/nu rse for this.She does admit to occasional leakage. # Following with specialist to fit dentures properly. # Colitis following with gastroenterology, on methotrexate, infliximab, TPN still in place.Using Aquaphor on ostomy site due to dryness/redness of skin. # Seasonal allergies: On fluticasone, cetirizine # Chronic diarrhea: on oxycodone, recommended by gastroenterology for chronic diarrhea, requesting refill today. [employer] reviewed. Controlled substance contract signed 12/05/2023. Working on following with Dr. Edwin Holly to get potential note for further management of chronic diarrhea. # Back pain: Ordered x-ray last visit for which she did not obtain. Ended up going to the emergency department for back pain. She was diagnosed with bilateral kidney stones, had obstructive pyelonephritis, and sepsis. Treated with stent, ceftriaxone, metronidazole. Patient is doing much better, following with [facility] urology, next visit December. PICC line was removed in the hospital. Already on oxycodone for diarrhea. # Asthma: Takes albuterol as needed # Nystatin powder as needed rash # History of breast cancer, controlled, gets mammograms annually. Follow-up in March for complete physical, fasting labs prior All quetsions answered to patients satisfaction. Patient verbalized understanding of diagnosis and treatments explained. To call sooner prior to next visit it any questions/concerns arise. Case discussed with collaborating physician Oleg Cintron who reviewed the assessment and plan. Chart, medications, labs, vital signs reviewed. Dictation was accomplished with the use of [employer] voice recognition software, prone to medical misidentifications and grammatical errors. This is unintentional and the practitioner does try to identify and correct these, but some could still be present. Please do not hesitate to contact practitioner for clarification. 01/08/2025 Diarrhea, unspecifie d (ICD-10 - R19.7) 01/29/2025 Diarrhea, unspecifie d (ICD-10 - R19.7) 02/09/2025 Diarrhea, unspecifie d (ICD-10 - R19.7) 03/10/2025 Diarrhea, unspecifie d (ICD-10 - R19.7) 12/14/2024 Crohn's disease with fistula, unspecified gastrointestinal tract location (ICD-10 - K50.913) # Ulcer on the lower gumline. Resolved. No further workup needed # Patient's at home nurse said that there was a abnormal heartbeat on auscultation. Today in office, normal rate and rhythm with no murmurs, rubs, gallops. EKG showing normal sinus rhythm. Offered cardiac workup with monitor, but patient declines at this time. Discussed emergency department criteria/criteria to call the office # Right hand pain at the base of the thumb, history of steroid injections with hand specialist, patient requesting a referral back to hand specialist.Most likely arthritic. # Ostomy care: Recommended following with gastroenterology/nu rse for this.She does admit to occasional leakage. # Following with specialist to fit dentures properly. # Colitis following with gastroenterology, on methotrexate, infliximab, TPN still in place.Using Aquaphor on ostomy site due to dryness/redness of skin. # Seasonal allergies: On fluticasone, cetirizine # Chronic diarrhea: on oxycodone, recommended by gastroenterology for chronic diarrhea, requesting refill today. [employer] reviewed. Controlled substance contract signed 12/05/2023. Working on following with Dr. Edwin Holly to get potential note for further management of chronic diarrhea. # Back pain: Ordered x-ray last visit for which she did not obtain. Ended up going to the emergency department for back pain. She was diagnosed with bilateral kidney stones, had obstructive pyelonephritis, and sepsis. Treated with stent, ceftriaxone, metronidazole. Patient is doing much better, following with [facility] urology, next visit December. PICC line was removed in the hospital. Already on oxycodone for diarrhea. # Asthma: Takes albuterol as needed # Nystatin powder as needed rash # History of breast cancer, controlled, gets mammograms annually. Follow-up in March for complete physical, fasting labs prior All quetsions answered to patients satisfaction. Patient verbalized understanding of diagnosis and treatments explained. To call sooner prior to next visit it any questions/concerns arise. Case discussed with collaborating physician Oleg Cintron who reviewed the assessment and plan. Chart, medications, labs, vital signs reviewed. Dictation was accomplished with the use of [employer] voice recognition software, prone to medical misidentifications and grammatical errors. This is unintentional and the practitioner does try to identify and correct these, but some could still be present. Please do not hesitate to contact practitioner for clarification. 03/24/2025 Adult general medica l exam (ICD-10 - Z00.00) Isamar is a pleasant 79-year-old female who presents the office for a complete physical exam. # PHQ-9 with a total score of 3, no concern regarding mental health at this time # Up-to-date on colonoscopy September 2023, follows with Dr. Muñoz in [place] # Mammogram up-to-date June 2024 due June 2025 # Bone density up-to-date June 2024 showing osteopenia # Declines flu, shingles, pneumonia, tetanus, COVID, and RSV # Healthcare proxy is her daughter Kenisha # Patient questioning conjunctivitis, physical exam consistent for very small stye. Discussed warm compresses but she is interested in prescription. Patient has an allergy to erythromycin. # A1c 6.2: Discussed lifestyle, referring to foster care case manager # Triglycerides 153, discussed lifestyle # Creatinine 1.28, GFR 43. History of kidney stones, will repeat value. Consider SGLT2 with history of prediabetes as well. # Allergies, with runny nose. Mildly elevation in eosinophils. Discontinue cetirizine, switch to fexofenadine 60 mg twice daily, continue Flonase # Ordering low-dose CT scan due to 50 years of smoking, 2 packs/day. Most recent CT scan 2022 # Ongoing back pain. Increase lidocaine patch percentage, discussed MRI as she is having a burning sensation in the center of her back, for which patient states she had 4 to 6 months ago at [facility]. We did not order this, will try to obtain record and if unable to, my recommendation would be to order an MRI first. Also sending to pain management. Patient did have an x-ray August 2025. History of kidney stones treated with ceftriaxone, metronidazole, following with [facility] urology. # Ongoing right hand pain at the base of her thumb. Saw a hand specialist who gave her a brace. Will send to pain management with the potential of injections as this is most likely arthritic pain. # Referring to foster care case manager for appropriate recommendations for nutrition with history of kidney stones # Discussed talking to dental insurance to see who is in network for new dentures # Continue following with Dr. Muñoz in [place]. History of Crohn's disease taking oxycodone 5 mg 3 times daily. Discontinued methotrexate, folic acid, and infliximab. Patient to follow with gastroenterology for continued treatment of chronic diarrhea, as well as Crohn's disease. # Marijuana use: Occasionally for sleep # EKG previous visit normal sinus rhythm. # Chronic diarrhea: Updated note from gastroenterology continuing to recommend oxycodone 3 times daily at 5 mg. [employer] reviewed, controlled substance contract signed December 05, 2023. # Asthma: Takes albuterol as needed # Nystatin powder as needed rash # History of breast cancer, controlled, gets mammograms annually. # Healthcare proxy is her daughter With patient 60 minutes or greater than 50% on patient occasion and care coordination. Follow-up in 3 months, repeat labs. Referral to foster care case manager, and pain management. Obtaining records of MRI of spine to determine further workup. Patient seen and examined. Comprehensive discussion was done on the following. 1. Nutrition: It is important to follow a healthy diet based on lots of vegetables and legumes and good fat. Avoid processed food and processed carbohydrates. Prepare your own meals. Read labels and avoid high fructose corn syrup, processed chemicals added to increase shelf life and preprepared meals. Avoid fast foods. Eat slowly and plan meals for a week. Try to count calories and be mindful off daily calorie intake. Get into the habit of keeping an eye on your weight by using an appropriate scale. Learn to log exercise and discussed fitness Apps like DecisionDesk which can help keep log off calories taken versus calories burned. Local food should be preferred. Discussed Dirty Dozen Versus Clean Fifteen. Discussed healthy supplements like fish oil, Tumeric, Curcumin, Melatonin, Resveratrol, Probiotics, Vitamin-D, Alpha-Lipoic acid, Vitamin-D and coconut oil. 2. It is important to exercise regularly. Is a good habit to walk at least 30 minutes a day. Gentle weightlifting with standard precautions to protect the back. Finding activity like cycling or hiking and get into the habit of engaging in it. Stretching before and after the exercises important. It is also important to contact me if there are any problems like shortness of breath, chest pain, back pain and joint or muscle pain associated with the exercise. 3. Discussed age appropriate screening guidelines. Colonoscopy needs to start at age 50 with stool for occult blood as appropriate. There is a new test that can test for genetic abnormalities in the stool sample, Cologuard. This would not replace a colonoscopy but could be used as a screening tool for patients who do not want a colonoscopy. We discussed the importance of early detection of colon cancer. 4. Discussed current guidelines with respect to breast examination, mammogram and pap smear for early detection of breast and cervical cancer. Patient advised to follow up with these appointments. 5. Discussed safe driving and no use of smart phone while driving 6. Age-appropriate immunizations were discussed. A tetanus booster is needed every 10 years. Flu vaccine is recommended every year just before the start of the flu season. Shingles vaccine is recommended after age 50 but not all insurances cover it. Pneumonia vaccine is given after age 65 unless there are certain comorbidities for which it is started earlier. 7. Diagnostic labs were discussed. These could include/not limited to CBC CMP and lipids with fasting blood glucose and insulin levels. Vitamin D and hemoglobin A1c testing might be appropriate. All quetsions answered to patients satisfaction. Patient verbalized understanding of diagnosis and treatments explained. To call sooner prior to next visit it any questions/concerns arise. Case discussed with collaborating physician Oleg Cintron who reviewed the assessment and plan. Chart, medications, labs, vital signs reviewed. Dictation was accomplished with the use of [employer] voice recognition software, prone to medical misidentifications and grammatical errors. This is unintentional and the practitioner does try to identify and correct these, but some could still be present. Please do not hesitate to contact practitioner for clarification. 03/24/2025 Crohn's disease with fistula, unspecified gastrointestinal tract location (ICD-10 - K50.913) Isamar is a pleasant 79-year-old female who presents the office for a complete physical exam. # PHQ-9 with a total score of 3, no concern regarding mental health at this time # Up-to-date on colonoscopy September 2023, follows with Dr. Muñoz in [place] # Mammogram up-to-date June 2024 due June 2025 # Bone density up-to-date June 2024 showing osteopenia # Declines flu, shingles, pneumonia, tetanus, COVID, and RSV # Healthcare proxy is her daughter Kenisha # Patient questioning conjunctivitis, physical exam consistent for very small stye. Discussed warm compresses but she is interested in prescription. Patient has an allergy to erythromycin. # A1c 6.2: Discussed lifestyle, referring to foster care case manager # Triglycerides 153, discussed lifestyle # Creatinine 1.28, GFR 43. History of kidney stones, will repeat value. Consider SGLT2 with history of prediabetes as well. # Allergies, with runny nose. Mildly elevation in eosinophils. Discontinue cetirizine, switch to fexofenadine 60 mg twice daily, continue Flonase # Ordering low-dose CT scan due to 50 years of smoking, 2 packs/day. Most recent CT scan 2022 # Ongoing back pain. Increase lidocaine patch percentage, discussed MRI as she is having a burning sensation in the center of her back, for which patient states she had 4 to 6 months ago at [facility]. We did not order this, will try to obtain record and if unable to, my recommendation would be to order an MRI first. Also sending to pain management. Patient did have an x-ray August 2025. History of kidney stones treated with ceftriaxone, metronidazole, following with [facility] urology. # Ongoing right hand pain at the base of her thumb. Saw a hand specialist who gave her a brace. Will send to pain management with the potential of injections as this is most likely arthritic pain. # Referring to foster care case manager for appropriate recommendations for nutrition with history of kidney stones # Discussed talking to dental insurance to see who is in network for new dentures # Continue following with Dr. Muñoz in [place]. History of Crohn's disease taking oxycodone 5 mg 3 times daily. Discontinued methotrexate, folic acid, and infliximab. Patient to follow with gastroenterology for continued treatment of chronic diarrhea, as well as Crohn's disease. # Marijuana use: Occasionally for sleep # EKG previous visit normal sinus rhythm. # Chronic diarrhea: Updated note from gastroenterology continuing to recommend oxycodone 3 times daily at 5 mg[facility] December 05, [facility]23. # Asthma: Takes albuterol as needed # Nystatin powder as needed rash # History of breast cancer, controlled, gets mammograms annually. # Healthcare proxy is her daughter With patient 60 minutes or greater than 50% on patient occasion and care coordination. Follow-up in 3 months, repeat labs. Referral to foster care case manager, and pain management. Obtaining records of MRI of spine to determine further workup. Patient seen and examined. Comprehensive discussion was done on the following. 1. Nutrition: It is important to follow a healthy diet based on lots of vegetables and legumes and good fat. Avoid processed food and processed carbohydrates. Prepare your own meals. Read labels and avoid high fructose corn syrup, processed chemicals added to increase shelf life and preprepared meals. Avoid fast foods. Eat slowly and plan meals for a week. Try to count calories and be mindful off daily calorie intake. Get into the habit of keeping an eye on your weight by using an appropriate scale. Learn to log exercise and discussed fitness Apps like DecisionDesk which can help keep log off calories taken versus calories burned. Local food should be preferred. Discussed Dirty Dozen Versus Clean Fifteen. Discussed healthy supplements like fish oil, Tumeric, Curcumin, Melatonin, Resveratrol, Probiotics, Vitamin-D, Alpha-Lipoic acid, Vitamin-D and coconut oil. 2. It is important to exercise regularly. Is a good habit to walk at least 30 minutes a day. Gentle weightlifting with standard precautions to protect the back. Finding activity like cycling or hiking and get into the habit of engaging in it. Stretching before and after the exercises important. It is also important to contact me if there are any problems like shortness of breath, chest pain, back pain and joint or muscle pain associated with the exercise. 3. Discussed age appropriate screening guidelines. Colonoscopy needs to start at age 50 with stool for occult blood as appropriate. There is a new test that can test for genetic abnormalities in the stool sample, Cologuard. This would not replace a colonoscopy but could be used as a screening tool for patients who do not want a colonoscopy. We discussed the importance of early detection of colon cancer. 4. Discussed current guidelines with respect to breast examination, mammogram and pap smear for early detection of breast and cervical cancer. Patient advised to follow up with these appointments. 5. Discussed safe driving and no use of smart phone while driving 6. Age-appropriate immunizations were discussed. A tetanus booster is needed every 10 years. Flu vaccine is recommended every year just before the start of the flu season. Shingles vaccine is recommended after age 50 but not all insurances cover it. Pneumonia vaccine is given after age 65 unless there are certain comorbidities for which it is started earlier. 7. Diagnostic labs were discussed. These could include/not limited to CBC CMP and lipids with fasting blood glucose and insulin levels. Vitamin D and hemoglobin A1c testing might be appropriate. All quetsions answered to patients satisfaction. Patient verbalized understanding of diagnosis and treatments explained. To call sooner prior to next visit it any questions/concerns arise. Case discussed with collaborating physician Oleg Cintron who reviewed the assessment and plan. Chart, medications, labs, vital signs reviewed. Dictation was accomplished with the use of [employer] voice recognition software, prone to medical misidentifications and grammatical errors. This is unintentional and the practitioner does try to identify and correct these, but some could still be present. Please do not hesitate to contact practitioner for clarification. 03/24/2025 Pain in thoracic spi ne (ICD-10 - M54.6) 03/24/2025 Irregular heart beat (ICD-10 - I49.9) Isamar is a pleasant 79-year-old female who presents the office for a complete physical exam. # PHQ-9 with a total score of 3, no concern regarding mental health at this time # Up-to-date on colonoscopy September 2023, follows with Dr. Muñoz in [place] # Mammogram up-to-date June 2024 due June 2025 # Bone density up-to-date June 2024 showing osteopenia # Declines flu, shingles, pneumonia, tetanus, COVID, and RSV # Healthcare proxy is her daughter Kenisha # Patient questioning conjunctivitis, physical exam consistent for very small stye. Discussed warm compresses but she is interested in prescription. Patient has an allergy to erythromycin. # A1c 6.2: Discussed lifestyle, referring to foster care case manager # Triglycerides 153, discussed lifestyle # Creatinine 1.28, GFR 43. History of kidney stones, will repeat value. Consider SGLT2 with history of prediabetes as well. # Allergies, with runny nose. Mildly elevation in eosinophils. Discontinue cetirizine, switch to fexofenadine 60 mg twice daily, continue Flonase # Ordering low-dose CT scan due to 50 years of smoking, 2 packs/day. Most recent CT scan 2022 # Ongoing back pain. Increase lidocaine patch percentage, discussed MRI as she is having a burning sensation in the center of her back, for which patient states she had 4 to 6 months ago at [facility]. We did not order this, will try to obtain record and if unable to, my recommendation would be to order an MRI first. Also sending to pain management. Patient did have an x-ray August 2025. History of kidney stones treated with ceftriaxone, metronidazole, following with [facility] urology. # Ongoing right hand pain at the base of her thumb. Saw a hand specialist who gave her a brace. Will send to pain management with the potential of injections as this is most likely arthritic pain. # Referring to foster care case manager for appropriate recommendations for nutrition with history of kidney stones # Discussed talking to dental insurance to see who is in network for new dentures # Continue following with Dr. Muñoz in [place]. History of Crohn's disease taking oxycodone 5 mg 3 times daily. Discontinued methotrexate, folic acid, and infliximab. Patient to follow with gastroenterology for continued treatment of chronic diarrhea, as well as Crohn's disease. # Marijuana use: Occasionally for sleep # EKG previous visit normal sinus rhythm. # Chronic diarrhea: Updated note from gastroenterology continuing to recommend oxycodone 3 times daily at 5 mg. [employer] reviewed, controlled substance contract signed December 05, 2023. # Asthma: Takes albuterol as needed # Nystatin powder as needed rash # History of breast cancer, controlled, gets mammograms annually. # Healthcare proxy is her daughter With patient 60 minutes or greater than 50% on patient occasion and care coordination. Follow-up in 3 months, repeat labs. Referral to foster care case manager, and pain management. Obtaining records of MRI of spine to determine further workup. Patient seen and examined. Comprehensive discussion was done on the following. 1. Nutrition: It is important to follow a healthy diet based on lots of vegetables and legumes and good fat. Avoid processed food and processed carbohydrates. Prepare your own meals. Read labels and avoid high fructose corn syrup, processed chemicals added to increase shelf life and preprepared meals. Avoid fast foods. Eat slowly and plan meals for a week. Try to count calories and be mindful off daily calorie intake. Get into the habit of keeping an eye on your weight by using an appropriate scale. Learn to log exercise and discussed fitness Apps like DecisionDesk which can help keep log off calories taken versus calories burned. Local food should be preferred. Discussed Dirty Dozen Versus Clean Fifteen. Discussed healthy supplements like fish oil, Tumeric, Curcumin, Melatonin, Resveratrol, Probiotics, Vitamin-D, Alpha-Lipoic acid, Vitamin-D and coconut oil. 2. It is important to exercise regularly. Is a good habit to walk at least 30 minutes a day. Gentle weightlifting with standard precautions to protect the back. Finding activity like cycling or hiking and get into the habit of engaging in it. Stretching before and after the exercises important. It is also important to contact me if there are any problems like shortness of breath, chest pain, back pain and joint or muscle pain associated with the exercise. 3. Discussed age appropriate screening guidelines. Colonoscopy needs to start at age 50 with stool for occult blood as appropriate. There is a new test that can test for genetic abnormalities in the stool sample, Cologuard. This would not replace a colonoscopy but could be used as a screening tool for patients who do not want a colonoscopy. We discussed the importance of early detection of colon cancer. 4. Discussed current guidelines with respect to breast examination, mammogram and pap smear for early detection of breast and cervical cancer. Patient advised to follow up with these appointments. 5. Discussed safe driving and no use of smart phone while driving 6. Age-appropriate immunizations were discussed. A tetanus booster is needed every 10 years. Flu vaccine is recommended every year just before the start of the flu season. Shingles vaccine is recommended after age 50 but not all insurances cover it. Pneumonia vaccine is given after age 65 unless there are certain comorbidities for which it is started earlier. 7. Diagnostic labs were discussed. These could include/not limited to CBC CMP and lipids with fasting blood glucose and insulin levels. Vitamin D and hemoglobin A1c testing might be appropriate. All quetsions answered to patients satisfaction. Patient verbalized understanding of diagnosis and treatments explained. To call sooner prior to next visit it any questions/concerns arise. Case discussed with collaborating physician Oleg Cintron who reviewed the assessment and plan. Chart, medications, labs, vital signs reviewed. Dictation was accomplished with the use of [employer] voice recognition software, prone to medical misidentifications and grammatical errors. This is unintentional and the practitioner does try to identify and correct these, but some could still be present. Please do not hesitate to contact practitioner for clarification. 12/14/2024 Diarrhea, unspecifie d (ICD-10 - R19.7) # Ulcer on the lower gumline. Resolved. No further workup needed # Patient's at home nurse said that there was a abnormal heartbeat on auscultation. Today in office, normal rate and rhythm with no murmurs, rubs, gallops. EKG showing normal sinus rhythm. Offered cardiac workup with monitor, but patient declines at this time. Discussed emergency department criteria/criteria to call the office # Right hand pain at the base of the thumb, history of steroid injections with hand specialist, patient requesting a referral back to hand specialist.Most likely arthritic. # Ostomy care: Recommended following with gastroenterology/nu rse for this.She does admit to occasional leakage. # Following with specialist to fit dentures properly. # Colitis following with gastroenterology, on methotrexate, infliximab, TPN still in place.Using Aquaphor on ostomy site due to dryness/redness of skin. # Seasonal allergies: On fluticasone, cetirizine # Chronic diarrhea: on oxycodone, recommended by gastroenterology for chronic diarrhea, requesting refill today. [facility] reviewed. Controlled substance contract signed 12/05/2023. Working on following with Dr. Edwin Holly to get potential note for further management of chronic diarrhea. # Back pain: Ordered x-ray last visit for which she did not obtain. Ended up going to the emergency department for back pain. She was diagnosed with bilateral kidney stones, had obstructive pyelonephritis, and sepsis. Treated with stent, ceftriaxone, metronidazole. Patient is doing much better, following with [facility] urology, next visit December. PICC line was removed in the hospital. Already on oxycodone for diarrhea. # Asthma: Takes albuterol as needed # Nystatin powder as needed rash # History of breast cancer, controlled, gets mammograms annually. Follow-up in March for complete physical, fasting labs prior All quetsions answered to patients satisfaction. Patient verbalized understanding of diagnosis and treatments explained. To call sooner prior to next visit it any questions/concerns arise. Case discussed with collaborating physician Oleg Cintron who reviewed the assessment and plan. Chart, medications, labs, vital signs reviewed. Dictation was accomplished with the use of [employer] voice recognition software, prone to medical misidentifications and grammatical errors. This is unintentional and the practitioner does try to identify and correct these, but some could still be present. Please do not hesitate to contact practitioner for clarification. 09/04/2024 Crohn's disease with fistula, unspecified gastrointestinal tract location (ICD-10 - K50.913) # Ulcer on the lower gumline. Last visit treated with lidocaine, likely secondary to denture molds. Because it is not healing, will refer to oral surgeon for biopsy. # Stye of left eye: Treat with bacitracin ointment. Avoid erythromycin secondary to allergy. Has tried antihistamines for allergic conjunctivitis which was diagnosed by urgent care. Has been dealing with this for a month. If no improvement recommended seeing ophthalmology # Ostomy care: Recommended following with gastroenterology/nu rse for this.She does admit to occasional leakage. # Following with specialist to fit dentures properly. # Colitis following with gastroenterology, on methotrexate, infliximab, TPN still in place.Using Aquaphor on ostomy site due to dryness/redness of skin. # Seasonal allergies: On fluticasone, cetirizine # Chronic diarrhea: on oxycodone, recommended by gastroenterology for chronic diarrhea, requesting refill today. [facility] reviewed. Controlled substance contract signed 12/05/2023 # Back pain: Ordered x-ray last visit for which she did not obtain. Will reorder x-ray. potentially consider orthopedic referral/pain specialist referral. Discussed conservative treatments. Already on oxycodone for diarrhea.Ordered this in February, for which she did not obtain, reordered in May for which she did not obtain. She is still having concerns about back pain, discussed the importance of imaging prior to further treatment. # Asthma: Takes albuterol as needed # Nystatin powder as needed rash # History of breast cancer, controlled, gets mammograms annually.Ordered today. Patient to follow-up in 1 month, follow-up with oral surgeon in the meantime, and treat stye. All quetsions answered to patients satisfaction. Patient verbalized understanding of diagnosis and treatments explained. To call sooner prior to next visit it any questions/concerns arise. Case discussed with collaborating physician Oleg Cintron who reviewed the assessment and plan. Chart, medications, labs, vital signs reviewed. Dictation was accomplished with the use of [employer] voice recognition software, prone to medical misidentifications and grammatical errors. This is unintentional and the practitioner does try to identify and correct these, but some could still be present. Please do not hesitate to contact practitioner for clarification. 07/21/2024 Chronic diarrhea (ICD-10 - K52.9) Isamar is a 78-year-old female with a PMH of Crohn's disease with persistent diarrhea, seasonal allergies, chronic back pain, osteoarthritis, asthma, previous breast cancer that presents for evaluation of sore in her mouth x3 weeks. #Mouth sore: Patient reports she developed a mouth sore after having molds taken at the dentist approximately 3 weeks ago. On exam there is an ulcer located medially on the lower gumline. It is small and without visible discharge or bleeding. Rx for 4% oral topical lidocaine sent to pharmacy. The patient is encouraged to apply small amount to the affected area up to three times daily as needed for pain. The patient understands not to swallow this medication. There is potential for cross-reactivity due to allergies to Bactrim, morphine, and erythromycin (ingredient benzyl alcohol). Discussed this with the patient, She feels comfortable taking this medication especially given she takes daily cetirizine. She is encouraged to follow-up with the pharmacist to discuss risk for cross reactivity given common ingredient. If the patient chooses not to use topical lidocaine, she is encouraged to continue symptomatic treatment with antimicrobial mouthwashes and salt water gargles. Furthermore the patient is encouraged to follow-up with her dentist office as scheduled to receive properly fitting dentures. #Crohn's/chronic diarrhea: PMH of Crohn's disease, follows with surgery assistant Dr. Tristan Muñoz with [facility]. Receives infliximab infusions once monthly via PICC line for treatment. Additionally the patient has informed to me that she takes oxycodone 10 mg every morning and 5 mg every afternoon for treatment of chronic diarrhea per reccomendation of GI. Prior to starting this regimen she reports as high as 32 episodes of diarrhea daily. On her current regimen she occasionally has stool incontinence overnight. Reports this is problematic as she is prone to treatment resistant UTIs. Interested in 1 additional 5 mg dose of oxycodone daily. As is my first time meeting the patient discussed that I cannot change her current regimen. The patient is encouraged to address this issue with Dr. Hudson and discuss alternative treatment options for diarrhea. #Chronic back pain/osteoarthritis : Patient reports history of chronic back pain osteoarthritis. Denies new/worsening back pain. ROM unchanged. Aside from bowel incontinence secondary to Crohn's disease, denies other bowel/bladder dysfunction. No saddle paresthesias. Takes vitamin D and calcium daily, requesting prescriptions at the patient does not have to pay for these medications. Explained that prescription can be sent, however that does not guarantee that insurance will cover them as they are available OTC. Additionally need to clarify dosing of medication prior to sending refills. Patient will call office to provide doses of calcium and vitamin D. Denies taking combination pill. Patient is unclear on what imaging has been performed of her back and is interested in additional imaging. The patient is encouraged to schedule an additional appointment to address back pain. Furthermore she is encouraged to consider physical therapy -referral provided last year by her PCP Sloan Garcia PA-C. New referral provided today. All questions answered to the patient's satisfaction. Patient demonstrates understanding of diagnosis and treatments discussed. Follow-up at next scheduled appointment, sooner should any questions/concerns arise. Case discussed with collaborating physician Oleg Cintron who has reviewed the assessment/plan. Chart, medications, labs, and vital signs reviewed. Dictation completed with the use of [employer] voice recognition software, prone to medical misidentifications and grammatical errors. All errors are unintentional. Although the practitioner does try to identify and correct errors, some may be present. Please do not hesitate to contact the practitioner for clarification. Total time spent was 30 minutes with >50% on coordination of care and patient education. 06/08/2024 Under care of ostomy nurse (ICD-10 - Z78.9) # Ostomy care: Recommended following with gastroenterology/nu rse for this.She does admit to occasional leakage. # Following with specialist to fit dentures properly. # Colitis following with gastroenterology, on methotrexate, infliximab, TPN still in place.Using Aquaphor on ostomy site due to dryness/redness of skin. # Seasonal allergies: On fluticasone, cetirizine # Chronic diarrhea: on oxycodone, recommended by gastroenterology for chronic diarrhea, requesting refill today. [employer]PAT reviewed. Controlled substance contract signed 12/05/2023 # Back pain: Will order x-ray, potentially consider orthopedic referral/pain specialist referral. Discussed conservative treatments. Already on oxycodone for diarrhea.Ordered this back in February for which patient did not obtain. Will reorder image. # Asthma: Takes albuterol as needed # Nystatin powder as needed rash # History of breast cancer, controlled, gets mammograms annually.Ordered today. # UTI symptoms: Urine dip positive for leukocytes. Was recently in the emergency department at [facility] on 05/04/2024. Consistent for UTI treated with Doxy. Patient notes some resolved symptoms but does not physically completely cleared. Urine dip in office consistent with UTI. Will extend course of doxycycline as patient has many antibiotic allergies. Send urine off for culture. Repeat urine post antibiotic use to ensure resolution of infection. 07/21/2024 Other chronic pain (ICD-10 - G89.29) Isamar is a 78-year-old female with a PMH of Crohn's disease with persistent diarrhea, seasonal allergies, chronic back pain, osteoarthritis, asthma, previous breast cancer that presents for evaluation of sore in her mouth x3 weeks. #Mouth sore: Patient reports she developed a mouth sore after having molds taken at the dentist approximately 3 weeks ago. On exam there is an ulcer located medially on the lower gumline. It is small and without visible discharge or bleeding. Rx for 4% oral topical lidocaine sent to pharmacy. The patient is encouraged to apply small amount to the affected area up to three times daily as needed for pain. The patient understands not to swallow this medication. There is potential for cross-reactivity due to allergies to Bactrim, morphine, and erythromycin (ingredient benzyl alcohol). Discussed this with the patient, She feels comfortable taking this medication especially given she takes daily cetirizine. She is encouraged to follow-up with the pharmacist to discuss risk for cross reactivity given common ingredient. If the patient chooses not to use topical lidocaine, she is encouraged to continue symptomatic treatment with antimicrobial mouthwashes and salt water gargles. Furthermore the patient is encouraged to follow-up with her dentist office as scheduled to receive properly fitting dentures. #Crohn's/chronic diarrhea: PMH of Crohn's disease, follows with surgery assistant Dr. Tristan Muñoz with [facility]. Receives infliximab infusions once monthly via PICC line for treatment. Additionally the patient has informed to me that she takes oxycodone 10 mg every morning and 5 mg every afternoon for treatment of chronic diarrhea per reccomendation of GI. Prior to starting this regimen she reports as high as 32 episodes of diarrhea daily. On her current regimen she occasionally has stool incontinence overnight. Reports this is problematic as she is prone to treatment resistant UTIs. Interested in 1 additional 5 mg dose of oxycodone daily. As is my first time meeting the patient discussed that I cannot change her current regimen. The patient is encouraged to address this issue with Dr. Hudson and discuss alternative treatment options for diarrhea. #Chronic back pain/osteoarthritis : Patient reports history of chronic back pain osteoarthritis. Denies new/worsening back pain. ROM unchanged. Aside from bowel incontinence secondary to Crohn's disease, denies other bowel/bladder dysfunction. No saddle paresthesias. Takes vitamin D and calcium daily, requesting prescriptions at the patient does not have to pay for these medications. Explained that prescription can be sent, however that does not guarantee that insurance will cover them as they are available OTC. Additionally need to clarify dosing of medication prior to sending refills. Patient will call office to provide doses of calcium and vitamin D. Denies taking combination pill. Patient is unclear on what imaging has been performed of her back and is interested in additional imaging. The patient is encouraged to schedule an additional appointment to address back pain. Furthermore she is encouraged to consider physical therapy -referral provided last year by her PCP Sloan Garcia PA-C. New referral provided today. All questions answered to the patient's satisfaction. Patient demonstrates understanding of diagnosis and treatments discussed. Follow-up at next scheduled appointment, sooner should any questions/concerns arise. Case discussed with collaborating physician Oleg Cintron who has reviewed the assessment/plan. Chart, medications, labs, and vital signs reviewed. Dictation completed with the use of [employer] voice recognition software, prone to medical misidentifications and grammatical errors. All errors are unintentional. Although the practitioner does try to identify and correct errors, some may be present. Please do not hesitate to contact the practitioner for clarification. Total time spent was 30 minutes with >50% on coordination of care and patient education. 06/08/2024 On total parenteral nutrition (TPN) (ICD-10 - Z78.9) # Ostomy care: Recommended following with gastroenterology/nu rse for this.She does admit to occasional leakage. # Following with specialist to fit dentures properly. # Colitis following with gastroenterology, on methotrexate, infliximab, TPN still in place.Using Aquaphor on ostomy site due to dryness/redness of skin. # Seasonal allergies: On fluticasone, cetirizine # Chronic diarrhea: on oxycodone, recommended by gastroenterology for chronic diarrhea, requesting refill today. MassPAT reviewed. Controlled substance contract signed 12/05/2023 # Back pain: Will order x-ray, potentially consider orthopedic referral/pain specialist referral. Discussed conservative treatments. Already on oxycodone for diarrhea.Ordered this back in February for which patient did not obtain. Will reorder image. # Asthma: Takes albuterol as needed # Nystatin powder as needed rash # History of breast cancer, controlled, gets mammograms annually.Ordered today. # UTI symptoms: Urine dip positive for leukocytes. Was recently in the emergency department at [facility] on 05/04/2024. Consistent for UTI treated with Doxy. Patient notes some resolved symptoms but does not physically completely cleared. Urine dip in office consistent with UTI. Will extend course of doxycycline as patient has many antibiotic allergies. Send urine off for culture. Repeat urine post antibiotic use to ensure resolution of infection. 12/14/2024 Under care of ostomy nurse (ICD-10 - Z78.9) # Ulcer on the lower gumline. Resolved. No further workup needed # Patient's at home nurse said that there was a abnormal heartbeat on auscultation. Today in office, normal rate and rhythm with no murmurs, rubs, gallops. EKG showing normal sinus rhythm. Offered cardiac workup with monitor, but patient declines at this time. Discussed emergency department criteria/criteria to call the office # Right hand pain at the base of the thumb, history of steroid injections with hand specialist, patient requesting a referral back to hand specialist.Most likely arthritic. # Ostomy care: Recommended following with gastroenterology/nu rse for this.She does admit to occasional leakage. # Following with specialist to fit dentures properly. # Colitis following with gastroenterology, on methotrexate, infliximab, TPN still in place.Using Aquaphor on ostomy site due to dryness/redness of skin. # Seasonal allergies: On fluticasone, cetirizine # Chronic diarrhea: on oxycodone, recommended by gastroenterology for chronic diarrhea, requesting refill today. MassPAT reviewed. Controlled substance contract signed 12/05/2023. Working on following with Dr. Edwin Holly to get potential note for further management of chronic diarrhea. # Back pain: Ordered x-ray last visit for which she did not obtain. Ended up going to the emergency department for back pain. She was diagnosed with bilateral kidney stones, had obstructive pyelonephritis, and sepsis. Treated with stent, ceftriaxone, metronidazole. Patient is doing much better, following with [facility] urology, next visit December. PICC line was removed in the hospital. Already on oxycodone for diarrhea. # Asthma: Takes albuterol as needed # Nystatin powder as needed rash # History of breast cancer, controlled, gets mammograms annually. Follow-up in March for complete physical, fasting labs prior All quetsions answered to patients satisfaction. Patient verbalized understanding of diagnosis and treatments explained. To call sooner prior to next visit it any questions/concerns arise. Case discussed with collaborating physician Oleg Cintron who reviewed the assessment and plan. Chart, medications, labs, vital signs reviewed. Dictation was accomplished with the use of [employer] voice recognition software, prone to medical misidentifications and grammatical errors. This is unintentional and the practitioner does try to identify and correct these, but some could still be present. Please do not hesitate to contact practitioner for clarification. 09/04/2024 Under care of ostomy nurse (ICD-10 - Z78.9) # Ulcer on the lower gumline. Last visit treated with lidocaine, likely secondary to denture molds. Because it is not healing, will refer to oral surgeon for biopsy. # Stye of left eye: Treat with bacitracin ointment. Avoid erythromycin secondary to allergy. Has tried antihistamines for allergic conjunctivitis which was diagnosed by urgent care. Has been dealing with this for a month. If no improvement recommended seeing ophthalmology # Ostomy care: Recommended following with gastroenterology/nu rse for this.She does admit to occasional leakage. # Following with specialist to fit dentures properly. # Colitis following with gastroenterology, on methotrexate, infliximab, TPN still in place.Using Aquaphor on ostomy site due to dryness/redness of skin. # Seasonal allergies: On fluticasone, cetirizine # Chronic diarrhea: on oxycodone, recommended by gastroenterology for chronic diarrhea, requesting refill today. MassPAT reviewed. Controlled substance contract signed 12/05/2023 # Back pain: Ordered x-ray last visit for which she did not obtain. Will reorder x-ray. potentially consider orthopedic referral/pain specialist referral. Discussed conservative treatments. Already on oxycodone for diarrhea.Ordered this in February, for which she did not obtain, reordered in May for which she did not obtain. She is still having concerns about back pain, discussed the importance of imaging prior to further treatment. # Asthma: Takes albuterol as needed # Nystatin powder as needed rash # History of breast cancer, controlled, gets mammograms annually.Ordered today. Patient to follow-up in 1 month, follow-up with oral surgeon in the meantime, and treat stye. All quetsions answered to patients satisfaction. Patient verbalized understanding of diagnosis and treatments explained. To call sooner prior to next visit it any questions/concerns arise. Case discussed with collaborating physician Oleg Cintron who reviewed the assessment and plan. Chart, medications, labs, vital signs reviewed. Dictation was accomplished with the use of [employer] voice recognition software, prone to medical misidentifications and grammatical errors. This is unintentional and the practitioner does try to identify and correct these, but some could still be present. Please do not hesitate to contact practitioner for clarification. 03/24/2025 Under care of ostomy nurse (ICD-10 - Z78.9) Isamar is a pleasant 79-year-old female who presents the office for a complete physical exam. # PHQ-9 with a total score of 3, no concern regarding mental health at this time # Up-to-date on colonoscopy September 2023, follows with Dr. Muñoz in [place] # Mammogram up-to-date June 2024 due June 2025 # Bone density up-to-date June 2024 showing osteopenia # Declines flu, shingles, pneumonia, tetanus, COVID, and RSV # Healthcare proxy is her daughter Kenisha # Patient questioning conjunctivitis, physical exam consistent for very small stye. Discussed warm compresses but she is interested in prescription. Patient has an allergy to erythromycin. # A1c 6.2: Discussed lifestyle, referring to foster care case manager # Triglycerides 153, discussed lifestyle # Creatinine 1.28, GFR 43. History of kidney stones, will repeat value. Consider SGLT2 with history of prediabetes as well. # Allergies, with runny nose. Mildly elevation in eosinophils. Discontinue cetirizine, switch to fexofenadine 60 mg twice daily, continue Flonase # Ordering low-dose CT scan due to 50 years of smoking, 2 packs/day. Most recent CT scan 2022 # Ongoing back pain. Increase lidocaine patch percentage, discussed MRI as she is having a burning sensation in the center of her back, for which patient states she had 4 to 6 months ago at [facility]. We did not order this, will try to obtain record and if unable to, my recommendation would be to order an MRI first. Also sending to pain management. Patient did have an x-ray August 2025. History of kidney stones treated with ceftriaxone, metronidazole, following with [facility] urology. # Ongoing right hand pain at the base of her thumb. Saw a hand specialist who gave her a brace. Will send to pain management with the potential of injections as this is most likely arthritic pain. # Referring to foster care case manager for appropriate recommendations for nutrition with history of kidney stones # Discussed talking to dental insurance to see who is in network for new dentures # Continue following with Dr. Muñoz in [place]. History of Crohn's disease taking oxycodone 5 mg 3 times daily. Discontinued methotrexate, folic acid, and infliximab. Patient to follow with gastroenterology for continued treatment of chronic diarrhea, as well as Crohn's disease. # Marijuana use: Occasionally for sleep # EKG previous visit normal sinus rhythm. # Chronic diarrhea: Updated note from gastroenterology continuing to recommend oxycodone 3 times daily at 5 mg. MassPAT reviewed, controlled substance contract signed December 05, 2023. # Asthma: Takes albuterol as needed # Nystatin powder as needed rash # History of breast cancer, controlled, gets mammograms annually. # Healthcare proxy is her daughter With patient 60 minutes or greater than 50% on patient occasion and care coordination. Follow-up in 3 months, repeat labs. Referral to foster care case manager, and pain management. Obtaining records of MRI of spine to determine further workup. Patient seen and examined. Comprehensive discussion was done on the following. 1. Nutrition: It is important to follow a healthy diet based on lots of vegetables and legumes and good fat. Avoid processed food and processed carbohydrates. Prepare your own meals. Read labels and avoid high fructose corn syrup, processed chemicals added to increase shelf life and preprepared meals. Avoid fast foods. Eat slowly and plan meals for a week. Try to count calories and be mindful off daily calorie intake. Get into the habit of keeping an eye on your weight by using an appropriate scale. Learn to log exercise and discussed fitness Apps like [employer] which can help keep log off calories taken versus calories burned. Local food should be preferred. Discussed Dirty Dozen Versus Clean Fifteen. Discussed healthy supplements like fish oil, Tumeric, Curcumin, Melatonin, Resveratrol, Probiotics, Vitamin-D, Alpha-Lipoic acid, Vitamin-D and coconut oil. 2. It is important to exercise regularly. Is a good habit to walk at least 30 minutes a day. Gentle weightlifting with standard precautions to protect the back. Finding activity like cycling or hiking and get into the habit of engaging in it. Stretching before and after the exercises important. It is also important to contact me if there are any problems like shortness of breath, chest pain, back pain and joint or muscle pain associated with the exercise. 3. Discussed age appropriate screening guidelines. Colonoscopy needs to start at age 50 with stool for occult blood as appropriate. There is a new test that can test for genetic abnormalities in the stool sample, Cologuard. This would not replace a colonoscopy but could be used as a screening tool for patients who do not want a colonoscopy. We discussed the importance of early detection of colon cancer. 4. Discussed current guidelines with respect to breast examination, mammogram and pap smear for early detection of breast and cervical cancer. Patient advised to follow up with these appointments. 5. Discussed safe driving and no use of smart phone while driving 6. Age-appropriate immunizations were discussed. A tetanus booster is needed every 10 years. Flu vaccine is recommended every year just before the start of the flu season. Shingles vaccine is recommended after age 50 but not all insurances cover it. Pneumonia vaccine is given after age 65 unless there are certain comorbidities for which it is started earlier. 7. Diagnostic labs were discussed. These could include/not limited to CBC CMP and lipids with fasting blood glucose and insulin levels. Vitamin D and hemoglobin A1c testing might be appropriate. All quetsions answered to patients satisfaction. Patient verbalized understanding of diagnosis and treatments explained. To call sooner prior to next visit it any questions/concerns arise. Case discussed with collaborating physician Oleg Cintron who reviewed the assessment and plan. Chart, medications, labs, vital signs reviewed. Dictation was accomplished with the use of [employer] voice recognition software, prone to medical misidentifications and grammatical errors. This is unintentional and the practitioner does try to identify and correct these, but some could still be present. Please do not hesitate to contact practitioner for clarification. 12/14/2024 On total parenteral nutrition (TPN) (ICD-10 - Z78.9) # Ulcer on the lower gumline. Resolved. No further workup needed # Patient's at home nurse said that there was a abnormal heartbeat on auscultation. Today in office, normal rate and rhythm with no murmurs, rubs, gallops. EKG showing normal sinus rhythm. Offered cardiac workup with monitor, but patient declines at this time. Discussed emergency department criteria/criteria to call the office # Right hand pain at the base of the thumb, history of steroid injections with hand specialist, patient requesting a referral back to hand specialist.Most likely arthritic. # Ostomy care: Recommended following with gastroenterology/nu rse for this.She does admit to occasional leakage. # Following with specialist to fit dentures properly. # Colitis following with gastroenterology, on methotrexate, infliximab, TPN still in place.Using Aquaphor on ostomy site due to dryness/redness of skin. # Seasonal allergies: On fluticasone, cetirizine # Chronic diarrhea: on oxycodone, recommended by gastroenterology for chronic diarrhea, requesting refill today. MassPAT reviewed. Controlled substance contract signed 12/05/2023. Working on following with Dr. Edwin Holly to get potential note for further management of chronic diarrhea. # Back pain: Ordered x-ray last visit for which she did not obtain. Ended up going to the emergency department for back pain. She was diagnosed with bilateral kidney stones, had obstructive pyelonephritis, and sepsis. Treated with stent, ceftriaxone, metronidazole. Patient is doing much better, following with [facility] urology, next visit December. PICC line was removed in the hospital. Already on oxycodone for diarrhea. # Asthma: Takes albuterol as needed # Nystatin powder as needed rash # History of breast cancer, controlled, gets mammograms annually. Follow-up in March for complete physical, fasting labs prior All quetsions answered to patients satisfaction. Patient verbalized understanding of diagnosis and treatments explained. To call sooner prior to next visit it any questions/concerns arise. Case discussed with collaborating physician Oleg Cintron who reviewed the assessment and plan. Chart, medications, labs, vital signs reviewed. Dictation was accomplished with the use of [employer] voice recognition software, prone to medical misidentifications and grammatical errors. This is unintentional and the practitioner does try to identify and correct these, but some could still be present. Please do not hesitate to contact practitioner for clarification. 03/24/2025 Other chronic pain (ICD-10 - G89.29) Isamar is a pleasant 79-year-old female who presents the office for a complete physical exam. # PHQ-9 with a total score of 3, no concern regarding mental health at this time # Up-to-date on colonoscopy September 2023, follows with Dr. Muñoz in [place] # Mammogram up-to-date June 2024 due June 2025 # Bone density up-to-date June 2024 showing osteopenia # Declines flu, shingles, pneumonia, tetanus, COVID, and RSV # Healthcare proxy is her daughter Kenisha # Patient questioning conjunctivitis, physical exam consistent for very small stye. Discussed warm compresses but she is interested in prescription. Patient has an allergy to erythromycin. # A1c 6.2: Discussed lifestyle, referring to foster care case manager # Triglycerides 153, discussed lifestyle # Creatinine 1.28, GFR 43. History of kidney stones, will repeat value. Consider SGLT2 with history of prediabetes as well. # Allergies, with runny nose. Mildly elevation in eosinophils. Discontinue cetirizine, switch to fexofenadine 60 mg twice daily, continue Flonase # Ordering low-dose CT scan due to 50 years of smoking, 2 packs/day. Most recent CT scan 2022 # Ongoing back pain. Increase lidocaine patch percentage, discussed MRI as she is having a burning sensation in the center of her back, for which patient states she had 4 to 6 months ago at [facility]. We did not order this, will try to obtain record and if unable to, my recommendation would be to order an MRI first. Also sending to pain management. Patient did have an x-ray August 2025. History of kidney stones treated with ceftriaxone, metronidazole, following with [facility] urology. # Ongoing right hand pain at the base of her thumb. Saw a hand specialist who gave her a brace. Will send to pain management with the potential of injections as this is most likely arthritic pain. # Referring to foster care case manager for appropriate recommendations for nutrition with history of kidney stones # Discussed talking to dental insurance to see who is in network for new dentures # Continue following with Dr. Muñoz in [place]. History of Crohn's disease taking oxycodone 5 mg 3 times daily. Discontinued methotrexate, folic acid, and infliximab. Patient to follow with gastroenterology for continued treatment of chronic diarrhea, as well as Crohn's disease. # Marijuana use: Occasionally for sleep # EKG previous visit normal sinus rhythm. # Chronic diarrhea: Updated note from gastroenterology continuing to recommend oxycodone 3 times daily at 5 mg. [employer] reviewed, controlled substance contract signed December 05, 2023. # Asthma: Takes albuterol as needed # Nystatin powder as needed rash # History of breast cancer, controlled, gets mammograms annually. # Healthcare proxy is her daughter With patient 60 minutes or greater than 50% on patient occasion and care coordination. Follow-up in 3 months, repeat labs. Referral to foster care case manager, and pain management. Obtaining records of MRI of spine to determine further workup. Patient seen and examined. Comprehensive discussion was done on the following. 1. Nutrition: It is important to follow a healthy diet based on lots of vegetables and legumes and good fat. Avoid processed food and processed carbohydrates. Prepare your own meals. Read labels and avoid high fructose corn syrup, processed chemicals added to increase shelf life and preprepared meals. Avoid fast foods. Eat slowly and plan meals for a week. Try to count calories and be mindful off daily calorie intake. Get into the habit of keeping an eye on your weight by using an appropriate scale. Learn to log exercise and discussed fitness Apps like [employer]k which can help keep log off calories taken versus calories burned. Local food should be preferred. Discussed Dirty Dozen Versus Clean Fifteen. Discussed healthy supplements like fish oil, Tumeric, Curcumin, Melatonin, Resveratrol, Probiotics, Vitamin-D, Alpha-Lipoic acid, Vitamin-D and coconut oil. 2. It is important to exercise regularly. Is a good habit to walk at least 30 minutes a day. Gentle weightlifting with standard precautions to protect the back. Finding activity like cycling or hiking and get into the habit of engaging in it. Stretching before and after the exercises important. It is also important to contact me if there are any problems like shortness of breath, chest pain, back pain and joint or muscle pain associated with the exercise. 3. Discussed age appropriate screening guidelines. Colonoscopy needs to start at age 50 with stool for occult blood as appropriate. There is a new test that can test for genetic abnormalities in the stool sample, Cologuard. This would not replace a colonoscopy but could be used as a screening tool for patients who do not want a colonoscopy. We discussed the importance of early detection of colon cancer. 4. Discussed current guidelines with respect to breast examination, mammogram and pap smear for early detection of breast and cervical cancer. Patient advised to follow up with these appointments. 5. Discussed safe driving and no use of smart phone while driving 6. Age-appropriate immunizations were discussed. A tetanus booster is needed every 10 years. Flu vaccine is recommended every year just before the start of the flu season. Shingles vaccine is recommended after age 50 but not all insurances cover it. Pneumonia vaccine is given after age 65 unless there are certain comorbidities for which it is started earlier. 7. Diagnostic labs were discussed. These could include/not limited to CBC CMP and lipids with fasting blood glucose and insulin levels. Vitamin D and hemoglobin A1c testing might be appropriate. All quetsions answered to patients satisfaction. Patient verbalized understanding of diagnosis and treatments explained. To call sooner prior to next visit it any questions/concerns arise. Case discussed with collaborating physician Oleg Cintron who reviewed the assessment and plan. Chart, medications, labs, vital signs reviewed. Dictation was accomplished with the use of [employer] voice recognition software, prone to medical misidentifications and grammatical errors. This is unintentional and the practitioner does try to identify and correct these, but some could still be present. Please do not hesitate to contact practitioner for clarification. 07/21/2024 Low back pain, unspecified (ICD-10 - M54.50) Isamar is a 78-year-old female with a PMH of Crohn's disease with persistent diarrhea, seasonal allergies, chronic back pain, osteoarthritis, asthma, previous breast cancer that presents for evaluation of sore in her mouth x3 weeks. #Mouth sore: Patient reports she developed a mouth sore after having molds taken at the dentist approximately 3 weeks ago. On exam there is an ulcer located medially on the lower gumline. It is small and without visible discharge or bleeding. Rx for 4% oral topical lidocaine sent to pharmacy. The patient is encouraged to apply small amount to the affected area up to three times daily as needed for pain. The patient understands not to swallow this medication. There is potential for cross-reactivity due to allergies to Bactrim, morphine, and erythromycin (ingredient benzyl alcohol). Discussed this with the patient, She feels comfortable taking this medication especially given she takes daily cetirizine. She is encouraged to follow-up with the pharmacist to discuss risk for cross reactivity given common ingredient. If the patient chooses not to use topical lidocaine, she is encouraged to continue symptomatic treatment with antimicrobial mouthwashes and salt water gargles. Furthermore the patient is encouraged to follow-up with her dentist office as scheduled to receive properly fitting dentures. #Crohn's/chronic diarrhea: PMH of Crohn's disease, follows with surgery assistant Dr. Tristan Muñoz with [facility]. Receives infliximab infusions once monthly via PICC line for treatment. Additionally the patient has informed to me that she takes oxycodone 10 mg every morning and 5 mg every afternoon for treatment of chronic diarrhea per reccomendation of GI. Prior to starting this regimen she reports as high as 32 episodes of diarrhea daily. On her current regimen she occasionally has stool incontinence overnight. Reports this is problematic as she is prone to treatment resistant UTIs. Interested in 1 additional 5 mg dose of oxycodone daily. As is my first time meeting the patient discussed that I cannot change her current regimen. The patient is encouraged to address this issue with Dr. Hudson and discuss alternative treatment options for diarrhea. #Chronic back pain/osteoarthritis : Patient reports history of chronic back pain osteoarthritis. Denies new/worsening back pain. ROM unchanged. Aside from bowel incontinence secondary to Crohn's disease, denies other bowel/bladder dysfunction. No saddle paresthesias. Takes vitamin D and calcium daily, requesting prescriptions at the patient does not have to pay for these medications. Explained that prescription can be sent, however that does not guarantee that insurance will cover them as they are available OTC. Additionally need to clarify dosing of medication prior to sending refills. Patient will call office to provide doses of calcium and vitamin D. Denies taking combination pill. Patient is unclear on what imaging has been performed of her back and is interested in additional imaging. The patient is encouraged to schedule an additional appointment to address back pain. Furthermore she is encouraged to consider physical therapy -referral provided last year by her PCP Sloan Garcia PA-C. New referral provided today. All questions answered to the patient's satisfaction. Patient demonstrates understanding of diagnosis and treatments discussed. Follow-up at next scheduled appointment, sooner should any questions/concerns arise. Case discussed with collaborating physician Oleg Cintron who has reviewed the assessment/plan. Chart, medications, labs, and vital signs reviewed. Dictation completed with the use of [employer] voice recognition software, prone to medical misidentifications and grammatical errors. All errors are unintentional. Although the practitioner does try to identify and correct errors, some may be present. Please do not hesitate to contact the practitioner for clarification. Total time spent was 30 minutes with >50% on coordination of care and patient education. 09/04/2024 On total parenteral nutrition (TPN) (ICD-10 - Z78.9) # Ulcer on the lower gumline. Last visit treated with lidocaine, likely secondary to denture molds. Because it is not healing, will refer to oral surgeon for biopsy. # Stye of left eye: Treat with bacitracin ointment. Avoid erythromycin secondary to allergy. Has tried antihistamines for allergic conjunctivitis which was diagnosed by urgent care. Has been dealing with this for a month. If no improvement recommended seeing ophthalmology # Ostomy care: Recommended following with gastroenterology/nu rse for this.She does admit to occasional leakage. # Following with specialist to fit dentures properly. # Colitis following with gastroenterology, on methotrexate, infliximab, TPN still in place.Using Aquaphor on ostomy site due to dryness/redness of skin. # Seasonal allergies: On fluticasone, cetirizine # Chronic diarrhea: on oxycodone, recommended by gastroenterology for chronic diarrhea, requesting refill today. [employer] reviewed. Controlled substance contract signed 12/05/2023 # Back pain: Ordered x-ray last visit for which she did not obtain. Will reorder x-ray. potentially consider orthopedic referral/pain specialist referral. Discussed conservative treatments. Already on oxycodone for diarrhea.Ordered this in February, for which she did not obtain, reordered in May for which she did not obtain. She is still having concerns about back pain, discussed the importance of imaging prior to further treatment. # Asthma: Takes albuterol as needed # Nystatin powder as needed rash # History of breast cancer, controlled, gets mammograms annually.Ordered today. Patient to follow-up in 1 month, follow-up with oral surgeon in the meantime, and treat stye. All quetsions answered to patients satisfaction. Patient verbalized understanding of diagnosis and treatments explained. To call sooner prior to next visit it any questions/concerns arise. Case discussed with collaborating physician Oleg Cintron who reviewed the assessment and plan. Chart, medications, labs, vital signs reviewed. Dictation was accomplished with the use of [employer] voice recognition software, prone to medical misidentifications and grammatical errors. This is unintentional and the practitioner does try to identify and correct these, but some could still be present. Please do not hesitate to contact practitioner for clarification. 06/08/2024 Pain in thoracic spi ne (ICD-10 - M54.6) # Ostomy care: Recommended following with gastroenterology/nu rse for this.She does admit to occasional leakage. # Following with specialist to fit dentures properly. # Colitis following with gastroenterology, on methotrexate, infliximab, TPN still in place.Using Aquaphor on ostomy site due to dryness/redness of skin. # Seasonal allergies: On fluticasone, cetirizine # Chronic diarrhea: on oxycodone, recommended by gastroenterology for chronic diarrhea, requesting refill today. [employer] reviewed. Controlled substance contract signed 12/05/2023 # Back pain: Will order x-ray, potentially consider orthopedic referral/pain specialist referral. Discussed conservative treatments. Already on oxycodone for diarrhea.Ordered this back in February for which patient did not obtain. Will reorder image. # Asthma: Takes albuterol as needed # Nystatin powder as needed rash # History of breast cancer, controlled, gets mammograms annually.Ordered today. # UTI symptoms: Urine dip positive for leukocytes. Was recently in the emergency department at [facility] on 05/04/2024. Consistent for UTI treated with Doxy. Patient notes some resolved symptoms but does not physically completely cleared. Urine dip in office consistent with UTI. Will extend course of doxycycline as patient has many antibiotic allergies. Send urine off for culture. Repeat urine post antibiotic use to ensure resolution of infection. 06/08/2024 Other chronic pain (ICD-10 - G89.29) # Ostomy care: Recommended following with gastroenterology/nu rse for this.She does admit to occasional leakage. # Following with specialist to fit dentures properly. # Colitis following with gastroenterology, on methotrexate, infliximab, TPN still in place.Using Aquaphor on ostomy site due to dryness/redness of skin. # Seasonal allergies: On fluticasone, cetirizine # Chronic diarrhea: on oxycodone, recommended by gastroenterology for chronic diarrhea, requesting refill today. [employer] reviewed. Controlled substance contract signed 12/05/2023 # Back pain: Will order x-ray, potentially consider orthopedic referral/pain specialist referral. Discussed conservative treatments. Already on oxycodone for diarrhea.Ordered this back in February for which patient did not obtain. Will reorder image. # Asthma: Takes albuterol as needed # Nystatin powder as needed rash # History of breast cancer, controlled, gets mammograms annually.Ordered today. # UTI symptoms: Urine dip positive for leukocytes. Was recently in the emergency department at [facility] on 05/04/2024. Consistent for UTI treated with Doxy. Patient notes some resolved symptoms but does not physically completely cleared. Urine dip in office consistent with UTI. Will extend course of doxycycline as patient has many antibiotic allergies. Send urine off for culture. Repeat urine post antibiotic use to ensure resolution of infection. 09/04/2024 Pain in thoracic spi ne (ICD-10 - M54.6) # Ulcer on the lower gumline. Last visit treated with lidocaine, likely secondary to denture molds. Because it is not healing, will refer to oral surgeon for biopsy. # Stye of left eye: Treat with bacitracin ointment. Avoid erythromycin secondary to allergy. Has tried antihistamines for allergic conjunctivitis which was diagnosed by urgent care. Has been dealing with this for a month. If no improvement recommended seeing ophthalmology # Ostomy care: Recommended following with gastroenterology/nu rse for this.She does admit to occasional leakage. # Following with specialist to fit dentures properly. # Colitis following with gastroenterology, on methotrexate, infliximab, TPN still in place.Using Aquaphor on ostomy site due to dryness/redness of skin. # Seasonal allergies: On fluticasone, cetirizine # Chronic diarrhea: on oxycodone, recommended by gastroenterology for chronic diarrhea, requesting refill today. [employer] reviewed. Controlled substance contract signed 12/05/2023 # Back pain: Ordered x-ray last visit for which she did not obtain. Will reorder x-ray. potentially consider orthopedic referral/pain specialist referral. Discussed conservative treatments. Already on oxycodone for diarrhea.Ordered this in February, for which she did not obtain, reordered in May for which she did not obtain. She is still having concerns about back pain, discussed the importance of imaging prior to further treatment. # Asthma: Takes albuterol as needed # Nystatin powder as needed rash # History of breast cancer, controlled, gets mammograms annually.Ordered today. Patient to follow-up in 1 month, follow-up with oral surgeon in the meantime, and treat stye. All quetsions answered to patients satisfaction. Patient verbalized understanding of diagnosis and treatments explained. To call sooner prior to next visit it any questions/concerns arise. Case discussed with collaborating physician Oleg Cintron who reviewed the assessment and plan. Chart, medications, labs, vital signs reviewed. Dictation was accomplished with the use of [employer] voice recognition software, prone to medical misidentifications and grammatical errors. This is unintentional and the practitioner does try to identify and correct these, but some could still be present. Please do not hesitate to contact practitioner for clarification. 07/21/2024 Osteoarthritis of sam th hips, unspecified osteoarthritis type (ICD-10 - M16.0) Isamar is a 78-year-old female with a PMH of Crohn's disease with persistent diarrhea, seasonal allergies, chronic back pain, osteoarthritis, asthma, previous breast cancer that presents for evaluation of sore in her mouth x3 weeks. #Mouth sore: Patient reports she developed a mouth sore after having molds taken at the dentist approximately 3 weeks ago. On exam there is an ulcer located medially on the lower gumline. It is small and without visible discharge or bleeding. Rx for 4% oral topical lidocaine sent to pharmacy. The patient is encouraged to apply small amount to the affected area up to three times daily as needed for pain. The patient understands not to swallow this medication. There is potential for cross-reactivity due to allergies to Bactrim, morphine, and erythromycin (ingredient benzyl alcohol). Discussed this with the patient, She feels comfortable taking this medication especially given she takes daily cetirizine. She is encouraged to follow-up with the pharmacist to discuss risk for cross reactivity given common ingredient. If the patient chooses not to use topical lidocaine, she is encouraged to continue symptomatic treatment with antimicrobial mouthwashes and salt water gargles. Furthermore the patient is encouraged to follow-up with her dentist office as scheduled to receive properly fitting dentures. #Crohn's/chronic diarrhea: PMH of Crohn's disease, follows with surgery assistant Dr. Tristan Muñoz with [facility]. Receives infliximab infusions once monthly via PICC line for treatment. Additionally the patient has informed to me that she takes oxycodone 10 mg every morning and 5 mg every afternoon for treatment of chronic diarrhea per reccomendation of GI. Prior to starting this regimen she reports as high as 32 episodes of diarrhea daily. On her current regimen she occasionally has stool incontinence overnight. Reports this is problematic as she is prone to treatment resistant UTIs. Interested in 1 additional 5 mg dose of oxycodone daily. As is my first time meeting the patient discussed that I cannot change her current regimen. The patient is encouraged to address this issue with Dr. Hudson and discuss alternative treatment options for diarrhea. #Chronic back pain/osteoarthritis : Patient reports history of chronic back pain osteoarthritis. Denies new/worsening back pain. ROM unchanged. Aside from bowel incontinence secondary to Crohn's disease, denies other bowel/bladder dysfunction. No saddle paresthesias. Takes vitamin D and calcium daily, requesting prescriptions at the patient does not have to pay for these medications. Explained that prescription can be sent, however that does not guarantee that insurance will cover them as they are available OTC. Additionally need to clarify dosing of medication prior to sending refills. Patient will call office to provide doses of calcium and vitamin D. Denies taking combination pill. Patient is unclear on what imaging has been performed of her back and is interested in additional imaging. The patient is encouraged to schedule an additional appointment to address back pain. Furthermore she is encouraged to consider physical therapy -referral provided last year by her PCP Sloan Garcia PA-C. New referral provided today. All questions answered to the patient's satisfaction. Patient demonstrates understanding of diagnosis and treatments discussed. Follow-up at next scheduled appointment, sooner should any questions/concerns arise. Case discussed with collaborating physician Oleg Cintron who has reviewed the assessment/plan. Chart, medications, labs, and vital signs reviewed. Dictation completed with the use of [employer] voice recognition software, prone to medical misidentifications and grammatical errors. All errors are unintentional. Although the practitioner does try to identify and correct errors, some may be present. Please do not hesitate to contact the practitioner for clarification. Total time spent was 30 minutes with >50% on coordination of care and patient education. 03/24/2025 Prediabetes (ICD-10 - R73.03) Isamar is a pleasant 79-year-old female who presents the office for a complete physical exam. # PHQ-9 with a total score of 3, no concern regarding mental health at this time # Up-to-date on colonoscopy September 2023, follows with Dr. Muñoz in [place] # Mammogram up-to-date June 2024 due June 2025 # Bone density up-to-date June 2024 showing osteopenia # Declines flu, shingles, pneumonia, tetanus, COVID, and RSV # Healthcare proxy is her daughter Kenisha # Patient questioning conjunctivitis, physical exam consistent for very small stye. Discussed warm compresses but she is interested in prescription. Patient has an allergy to erythromycin. # A1c 6.2: Discussed lifestyle, referring to foster care case manager # Triglycerides 153, discussed lifestyle # Creatinine 1.28, GFR 43. History of kidney stones, will repeat value. Consider SGLT2 with history of prediabetes as well. # Allergies, with runny nose. Mildly elevation in eosinophils. Discontinue cetirizine, switch to fexofenadine 60 mg twice daily, continue Flonase # Ordering low-dose CT scan due to 50 years of smoking, 2 packs/day. Most recent CT scan 2022 # Ongoing back pain. Increase lidocaine patch percentage, discussed MRI as she is having a burning sensation in the center of her back, for which patient states she had 4 to 6 months ago at [facility]. We did not order this, will try to obtain record and if unable to, my recommendation would be to order an MRI first. Also sending to pain management. Patient did have an x-ray August 2025. History of kidney stones treated with ceftriaxone, metronidazole, following with [facility] urology. # Ongoing right hand pain at the base of her thumb. Saw a hand specialist who gave her a brace. Will send to pain management with the potential of injections as this is most likely arthritic pain. # Referring to foster care case manager for appropriate recommendations for nutrition with history of kidney stones # Discussed talking to dental insurance to see who is in network for new dentures # Continue following with Dr. Muñoz in [place]. History of Crohn's disease taking oxycodone 5 mg 3 times daily. Discontinued methotrexate, folic acid, and infliximab. Patient to follow with gastroenterology for continued treatment of chronic diarrhea, as well as Crohn's disease. # Marijuana use: Occasionally for sleep # EKG previous visit normal sinus rhythm. # Chronic diarrhea: Updated note from gastroenterology continuing to recommend oxycodone 3 times daily at 5 mg. [employer] reviewed, controlled substance contract signed December 05, 2023. # Asthma: Takes albuterol as needed # Nystatin powder as needed rash # History of breast cancer, controlled, gets mammograms annually. # Healthcare proxy is her daughter With patient 60 minutes or greater than 50% on patient occasion and care coordination. Follow-up in 3 months, repeat labs. Referral to foster care case manager, and pain management. Obtaining records of MRI of spine to determine further workup. Patient seen and examined. Comprehensive discussion was done on the following. 1. Nutrition: It is important to follow a healthy diet based on lots of vegetables and legumes and good fat. Avoid processed food and processed carbohydrates. Prepare your own meals. Read labels and avoid high fructose corn syrup, processed chemicals added to increase shelf life and preprepared meals. Avoid fast foods. Eat slowly and plan meals for a week. Try to count calories and be mindful off daily calorie intake. Get into the habit of keeping an eye on your weight by using an appropriate scale. Learn to log exercise and discussed fitness Apps like DecisionDesk which can help keep log off calories taken versus calories burned. Local food should be preferred. Discussed Dirty Dozen Versus Clean Fifteen. Discussed healthy supplements like fish oil, Tumeric, Curcumin, Melatonin, Resveratrol, Probiotics, Vitamin-D, Alpha-Lipoic acid, Vitamin-D and coconut oil. 2. It is important to exercise regularly. Is a good habit to walk at least 30 minutes a day. Gentle weightlifting with standard precautions to protect the back. Finding activity like cycling or hiking and get into the habit of engaging in it. Stretching before and after the exercises important. It is also important to contact me if there are any problems like shortness of breath, chest pain, back pain and joint or muscle pain associated with the exercise. 3. Discussed age appropriate screening guidelines. Colonoscopy needs to start at age 50 with stool for occult blood as appropriate. There is a new test that can test for genetic abnormalities in the stool sample, Cologuard. This would not replace a colonoscopy but could be used as a screening tool for patients who do not want a colonoscopy. We discussed the importance of early detection of colon cancer. 4. Discussed current guidelines with respect to breast examination, mammogram and pap smear for early detection of breast and cervical cancer. Patient advised to follow up with these appointments. 5. Discussed safe driving and no use of smart phone while driving 6. Age-appropriate immunizations were discussed. A tetanus booster is needed every 10 years. Flu vaccine is recommended every year just before the start of the flu season. Shingles vaccine is recommended after age 50 but not all insurances cover it. Pneumonia vaccine is given after age 65 unless there are certain comorbidities for which it is started earlier. 7. Diagnostic labs were discussed. These could include/not limited to CBC CMP and lipids with fasting blood glucose and insulin levels. Vitamin D and hemoglobin A1c testing might be appropriate. All quetsions answered to patients satisfaction. Patient verbalized understanding of diagnosis and treatments explained. To call sooner prior to next visit it any questions/concerns arise. Case discussed with collaborating physician Oleg Cintron who reviewed the assessment and plan. Chart, medications, labs, vital signs reviewed. Dictation was accomplished with the use of [employer] voice recognition software, prone to medical misidentifications and grammatical errors. This is unintentional and the practitioner does try to identify and correct these, but some could still be present. Please do not hesitate to contact practitioner for clarification. 12/14/2024 Other chronic pain (ICD-10 - G89.29) # Ulcer on the lower gumline. Resolved. No further workup needed # Patient's at home nurse said that there was a abnormal heartbeat on auscultation. Today in office, normal rate and rhythm with no murmurs, rubs, gallops. EKG showing normal sinus rhythm. Offered cardiac workup with monitor, but patient declines at this time. Discussed emergency department criteria/criteria to call the office # Right hand pain at the base of the thumb, history of steroid injections with hand specialist, patient requesting a referral back to hand specialist.Most likely arthritic. # Ostomy care: Recommended following with gastroenterology/nu rse for this.She does admit to occasional leakage. # Following with specialist to fit dentures properly. # Colitis following with gastroenterology, on methotrexate, infliximab, TPN still in place.Using Aquaphor on ostomy site due to dryness/redness of skin. # Seasonal allergies: On fluticasone, cetirizine # Chronic diarrhea: on oxycodone, recommended by gastroenterology for chronic diarrhea, requesting refill today. [employer] reviewed. Controlled substance contract signed 12/05/2023. Working on following with Dr. Edwin Holly to get potential note for further management of chronic diarrhea. # Back pain: Ordered x-ray last visit for which she did not obtain. Ended up going to the emergency department for back pain. She was diagnosed with bilateral kidney stones, had obstructive pyelonephritis, and sepsis. Treated with stent, ceftriaxone, metronidazole. Patient is doing much better, following with [facility] urology, next visit December. PICC line was removed in the hospital. Already on oxycodone for diarrhea. # Asthma: Takes albuterol as needed # Nystatin powder as needed rash # History of breast cancer, controlled, gets mammograms annually. Follow-up in March for complete physical, fasting labs prior All quetsions answered to patients satisfaction. Patient verbalized understanding of diagnosis and treatments explained. To call sooner prior to next visit it any questions/concerns arise. Case discussed with collaborating physician Oleg Cintron who reviewed the assessment and plan. Chart, medications, labs, vital signs reviewed. Dictation was accomplished with the use of [employer] voice recognition software, prone to medical misidentifications and grammatical errors. This is unintentional and the practitioner does try to identify and correct these, but some could still be present. Please do not hesitate to contact practitioner for clarification. 12/14/2024 Back pain, unspecifi ed back location, unspecified back pain laterality, unspecified chronicity (ICD-10 - M54.9) # Ulcer on the lower gumline. Resolved. No further workup needed # Patient's at home nurse said that there was a abnormal heartbeat on auscultation. Today in office, normal rate and rhythm with no murmurs, rubs, gallops. EKG showing normal sinus rhythm. Offered cardiac workup with monitor, but patient declines at this time. Discussed emergency department criteria/criteria to call the office # Right hand pain at the base of the thumb, history of steroid injections with hand specialist, patient requesting a referral back to hand specialist.Most likely arthritic. # Ostomy care: Recommended following with gastroenterology/nu rse for this.She does admit to occasional leakage. # Following with specialist to fit dentures properly. # Colitis following with gastroenterology, on methotrexate, infliximab, TPN still in place.Using Aquaphor on ostomy site due to dryness/redness of skin. # Seasonal allergies: On fluticasone, cetirizine # Chronic diarrhea: on oxycodone, recommended by gastroenterology for chronic diarrhea, requesting refill today. [employer] reviewed. Controlled substance contract signed 12/05/2023. Working on following with Dr. Edwin Holly to get potential note for further management of chronic diarrhea. # Back pain: Ordered x-ray last visit for which she did not obtain. Ended up going to the emergency department for back pain. She was diagnosed with bilateral kidney stones, had obstructive pyelonephritis, and sepsis. Treated with stent, ceftriaxone, metronidazole. Patient is doing much better, following with [facility] urology, next visit December. PICC line was removed in the hospital. Already on oxycodone for diarrhea. # Asthma: Takes albuterol as needed # Nystatin powder as needed rash # History of breast cancer, controlled, gets mammograms annually. Follow-up in March for complete physical, fasting labs prior All quetsions answered to patients satisfaction. Patient verbalized understanding of diagnosis and treatments explained. To call sooner prior to next visit it any questions/concerns arise. Case discussed with collaborating physician Oleg Cintron who reviewed the assessment and plan. Chart, medications, labs, vital signs reviewed. Dictation was accomplished with the use of [employer] voice recognition software, prone to medical misidentifications and grammatical errors. This is unintentional and the practitioner does try to identify and correct these, but some could still be present. Please do not hesitate to contact practitioner for clarification. 09/04/2024 Other chronic pain (ICD-10 - G89.29) # Ulcer on the lower gumline. Last visit treated with lidocaine, likely secondary to denture molds. Because it is not healing, will refer to oral surgeon for biopsy. # Stye of left eye: Treat with bacitracin ointment. Avoid erythromycin secondary to allergy. Has tried antihistamines for allergic conjunctivitis which was diagnosed by urgent care. Has been dealing with this for a month. If no improvement recommended seeing ophthalmology # Ostomy care: Recommended following with gastroenterology/nu rse for this.She does admit to occasional leakage. # Following with specialist to fit dentures properly. # Colitis following with gastroenterology, on methotrexate, infliximab, TPN still in place.Using Aquaphor on ostomy site due to dryness/redness of skin. # Seasonal allergies: On fluticasone, cetirizine # Chronic diarrhea: on oxycodone, recommended by gastroenterology for chronic diarrhea, requesting refill today. [employer] reviewed. Controlled substance contract signed 12/05/2023 # Back pain: Ordered x-ray last visit for which she did not obtain. Will reorder x-ray. potentially consider orthopedic referral/pain specialist referral. Discussed conservative treatments. Already on oxycodone for diarrhea.Ordered this in February, for which she did not obtain, reordered in May for which she did not obtain. She is still having concerns about back pain, discussed the importance of imaging prior to further treatment. # Asthma: Takes albuterol as needed # Nystatin powder as needed rash # History of breast cancer, controlled, gets mammograms annually.Ordered today. Patient to follow-up in 1 month, follow-up with oral surgeon in the meantime, and treat stye. All quetsions answered to patients satisfaction. Patient verbalized understanding of diagnosis and treatments explained. To call sooner prior to next visit it any questions/concerns arise. Case discussed with collaborating physician Oleg Cintron who reviewed the assessment and plan. Chart, medications, labs, vital signs reviewed. Dictation was accomplished with the use of [employer] voice recognition software, prone to medical misidentifications and grammatical errors. This is unintentional and the practitioner does try to identify and correct these, but some could still be present. Please do not hesitate to contact practitioner for clarification. 06/08/2024 Dysuria (ICD-10 - R30.0) # Ostomy care: Recommended following with gastroenterology/nu rse for this.She does admit to occasional leakage. # Following with specialist to fit dentures properly. # Colitis following with gastroenterology, on methotrexate, infliximab, TPN still in place.Using Aquaphor on ostomy site due to dryness/redness of skin. # Seasonal allergies: On fluticasone, cetirizine # Chronic diarrhea: on oxycodone, recommended by gastroenterology for chronic diarrhea, requesting refill today. [employer] reviewed. Controlled substance contract signed 12/05/2023 # Back pain: Will order x-ray, potentially consider orthopedic referral/pain specialist referral. Discussed conservative treatments. Already on oxycodone for diarrhea.Ordered this back in February for which patient did not obtain. Will reorder image. # Asthma: Takes albuterol as needed # Nystatin powder as needed rash # History of breast cancer, controlled, gets mammograms annually.Ordered today. # UTI symptoms: Urine dip positive for leukocytes. Was recently in the emergency department at [facility] on 05/04/2024. Consistent for UTI treated with Doxy. Patient notes some resolved symptoms but does not physically completely cleared. Urine dip in office consistent with UTI. Will extend course of doxycycline as patient has many antibiotic allergies. Send urine off for culture. Repeat urine post antibiotic use to ensure resolution of infection. 03/24/2025 Hypertriglyceridemia (ICD-10 - E78.1) Isamar is a pleasant 79-year-old female who presents the office for a complete physical exam. # PHQ-9 with a total score of 3, no concern regarding mental health at this time # Up-to-date on colonoscopy September 2023, follows with Dr. Muñoz in [place] # Mammogram up-to-date June 2024 due June 2025 # Bone density up-to-date June 2024 showing osteopenia # Declines flu, shingles, pneumonia, tetanus, COVID, and RSV # Healthcare proxy is her daughter Kenisha # Patient questioning conjunctivitis, physical exam consistent for very small stye. Discussed warm compresses but she is interested in prescription. Patient has an allergy to erythromycin. # A1c 6.2: Discussed lifestyle, referring to foster care case manager # Triglycerides 153, discussed lifestyle # Creatinine 1.28, GFR 43. History of kidney stones, will repeat value. Consider SGLT2 with history of prediabetes as well. # Allergies, with runny nose. Mildly elevation in eosinophils. Discontinue cetirizine, switch to fexofenadine 60 mg twice daily, continue Flonase # Ordering low-dose CT scan due to 50 years of smoking, 2 packs/day. Most recent CT scan 2022 # Ongoing back pain. Increase lidocaine patch percentage, discussed MRI as she is having a burning sensation in the center of her back, for which patient states she had 4 to 6 months ago at [facility]. We did not order this, will try to obtain record and if unable to, my recommendation would be to order an MRI first. Also sending to pain management. Patient did have an x-ray August 2025. History of kidney stones treated with ceftriaxone, metronidazole, following with [facility] urology. # Ongoing right hand pain at the base of her thumb. Saw a hand specialist who gave her a brace. Will send to pain management with the potential of injections as this is most likely arthritic pain. # Referring to foster care case manager for appropriate recommendations for nutrition with history of kidney stones # Discussed talking to dental insurance to see who is in network for new dentures # Continue following with Dr. Muñoz in [place]. History of Crohn's disease taking oxycodone 5 mg 3 times daily. Discontinued methotrexate, folic acid, and infliximab. Patient to follow with gastroenterology for continued treatment of chronic diarrhea, as well as Crohn's disease. # Marijuana use: Occasionally for sleep # EKG previous visit normal sinus rhythm. # Chronic diarrhea: Updated note from gastroenterology continuing to recommend oxycodone 3 times daily at 5 mg. [facility] December 05, 2023. # Asthma: Takes albuterol as needed # Nystatin powder as needed rash # History of breast cancer, controlled, gets mammograms annually. # Healthcare proxy is her daughter With patient 60 minutes or greater than 50% on patient occasion and care coordination. Follow-up in 3 months, repeat labs. Referral to foster care case manager, and pain management. Obtaining records of MRI of spine to determine further workup. Patient seen and examined. Comprehensive discussion was done on the following. 1. Nutrition: It is important to follow a healthy diet based on lots of vegetables and legumes and good fat. Avoid processed food and processed carbohydrates. Prepare your own meals. Read labels and avoid high fructose corn syrup, processed chemicals added to increase shelf life and preprepared meals. Avoid fast foods. Eat slowly and plan meals for a week. Try to count calories and be mindful off daily calorie intake. Get into the habit of keeping an eye on your weight by using an appropriate scale. Learn to log exercise and discussed fitness Apps like DecisionDesk which can help keep log off calories taken versus calories burned. Local food should be preferred. Discussed Dirty Dozen Versus Clean Fifteen. Discussed healthy supplements like fish oil, Tumeric, Curcumin, Melatonin, Resveratrol, Probiotics, Vitamin-D, Alpha-Lipoic acid, Vitamin-D and coconut oil. 2. It is important to exercise regularly. Is a good habit to walk at least 30 minutes a day. Gentle weightlifting with standard precautions to protect the back. Finding activity like cycling or hiking and get into the habit of engaging in it. Stretching before and after the exercises important. It is also important to contact me if there are any problems like shortness of breath, chest pain, back pain and joint or muscle pain associated with the exercise. 3. Discussed age appropriate screening guidelines. Colonoscopy needs to start at age 50 with stool for occult blood as appropriate. There is a new test that can test for genetic abnormalities in the stool sample, Cologuard. This would not replace a colonoscopy but could be used as a screening tool for patients who do not want a colonoscopy. We discussed the importance of early detection of colon cancer. 4. Discussed current guidelines with respect to breast examination, mammogram and pap smear for early detection of breast and cervical cancer. Patient advised to follow up with these appointments. 5. Discussed safe driving and no use of smart phone while driving 6. Age-appropriate immunizations were discussed. A tetanus booster is needed every 10 years. Flu vaccine is recommended every year just before the start of the flu season. Shingles vaccine is recommended after age 50 but not all insurances cover it. Pneumonia vaccine is given after age 65 unless there are certain comorbidities for which it is started earlier. 7. Diagnostic labs were discussed. These could include/not limited to CBC CMP and lipids with fasting blood glucose and insulin levels. Vitamin D and hemoglobin A1c testing might be appropriate. All quetsions answered to patients satisfaction. Patient verbalized understanding of diagnosis and treatments explained. To call sooner prior to next visit it any questions/concerns arise. Case discussed with collaborating physician Oleg Cintron who reviewed the assessment and plan. Chart, medications, labs, vital signs reviewed. Dictation was accomplished with the use of [employer] voice recognition software, prone to medical misidentifications and grammatical errors. This is unintentional and the practitioner does try to identify and correct these, but some could still be present. Please do not hesitate to contact practitioner for clarification. 09/04/2024 Back pain, unspecifi ed back location, unspecified back pain laterality, unspecified chronicity (ICD-10 - M54.9) # Ulcer on the lower gumline. Last visit treated with lidocaine, likely secondary to denture molds. Because it is not healing, will refer to oral surgeon for biopsy. # Stye of left eye: Treat with bacitracin ointment. Avoid erythromycin secondary to allergy. Has tried antihistamines for allergic conjunctivitis which was diagnosed by urgent care. Has been dealing with this for a month. If no improvement recommended seeing ophthalmology # Ostomy care: Recommended following with gastroenterology/nu rse for this.She does admit to occasional leakage. # Following with specialist to fit dentures properly. # Colitis following with gastroenterology, on methotrexate, infliximab, TPN still in place.Using Aquaphor on ostomy site due to dryness/redness of skin. # Seasonal allergies: On fluticasone, cetirizine # Chronic diarrhea: on oxycodone, recommended by gastroenterology for chronic diarrhea, requesting refill today. [employer] reviewed. Controlled substance contract signed 12/05/2023 # Back pain: Ordered x-ray last visit for which she did not obtain. Will reorder x-ray. potentially consider orthopedic referral/pain specialist referral. Discussed conservative treatments. Already on oxycodone for diarrhea.Ordered this in February, for which she did not obtain, reordered in May for which she did not obtain. She is still having concerns about back pain, discussed the importance of imaging prior to further treatment. # Asthma: Takes albuterol as needed # Nystatin powder as needed rash # History of breast cancer, controlled, gets mammograms annually.Ordered today. Patient to follow-up in 1 month, follow-up with oral surgeon in the meantime, and treat stye. All quetsions answered to patients satisfaction. Patient verbalized understanding of diagnosis and treatments explained. To call sooner prior to next visit it any questions/concerns arise. Case discussed with collaborating physician Oleg Cintron who reviewed the assessment and plan. Chart, medications, labs, vital signs reviewed. Dictation was accomplished with the use of [employer] voice recognition software, prone to medical misidentifications and grammatical errors. This is unintentional and the practitioner does try to identify and correct these, but some could still be present. Please do not hesitate to contact practitioner for clarification. 03/24/2025 Encounter for examination of blood pressure without abnormal findings (ICD-10 - Z01.30) Isamar is a pleasant 79-year-old female who presents the office for a complete physical exam. # PHQ-9 with a total score of 3, no concern regarding mental health at this time # Up-to-date on colonoscopy September 2023, follows with Dr. Muñoz in [place] # Mammogram up-to-date June 2024 due June 2025 # Bone density up-to-date June 2024 showing osteopenia # Declines flu, shingles, pneumonia, tetanus, COVID, and RSV # Healthcare proxy is her daughter Kenisha # Patient questioning conjunctivitis, physical exam consistent for very small stye. Discussed warm compresses but she is interested in prescription. Patient has an allergy to erythromycin. # A1c 6.2: Discussed lifestyle, referring to foster care case manager # Triglycerides 153, discussed lifestyle # Creatinine 1.28, GFR 43. History of kidney stones, will repeat value. Consider SGLT2 with history of prediabetes as well. # Allergies, with runny nose. Mildly elevation in eosinophils. Discontinue cetirizine, switch to fexofenadine 60 mg twice daily, continue Flonase # Ordering low-dose CT scan due to 50 years of smoking, 2 packs/day. Most recent CT scan 2022 # Ongoing back pain. Increase lidocaine patch percentage, discussed MRI as she is having a burning sensation in the center of her back, for which patient states she had 4 to 6 months ago at [facility]. We did not order this, will try to obtain record and if unable to, my recommendation would be to order an MRI first. Also sending to pain management. Patient did have an x-ray August 2025. History of kidney stones treated with ceftriaxone, metronidazole, following with [facility] urology. # Ongoing right hand pain at the base of her thumb. Saw a hand specialist who gave her a brace. Will send to pain management with the potential of injections as this is most likely arthritic pain. # Referring to foster care case manager for appropriate recommendations for nutrition with history of kidney stones # Discussed talking to dental insurance to see who is in network for new dentures # Continue following with Dr. Muñoz in [place]. History of Crohn's disease taking oxycodone 5 mg 3 times daily. Discontinued methotrexate, folic acid, and infliximab. Patient to follow with gastroenterology for continued treatment of chronic diarrhea, as well as Crohn's disease. # Marijuana use: Occasionally for sleep # EKG previous visit normal sinus rhythm. # Chronic diarrhea: Updated note from gastroenterology continuing to recommend oxycodone 3 times daily at 5 mg. [facility] reviewed, controlled substance contract signed December 05, 2023. # Asthma: Takes albuterol as needed # Nystatin powder as needed rash # History of breast cancer, controlled, gets mammograms annually. # Healthcare proxy is her daughter With patient 60 minutes or greater than 50% on patient occasion and care coordination. Follow-up in 3 months, repeat labs. Referral to foster care case manager, and pain management. Obtaining records of MRI of spine to determine further workup. Patient seen and examined. Comprehensive discussion was done on the following. 1. Nutrition: It is important to follow a healthy diet based on lots of vegetables and legumes and good fat. Avoid processed food and processed carbohydrates. Prepare your own meals. Read labels and avoid high fructose corn syrup, processed chemicals added to increase shelf life and preprepared meals. Avoid fast foods. Eat slowly and plan meals for a week. Try to count calories and be mindful off daily calorie intake. Get into the habit of keeping an eye on your weight by using an appropriate scale. Learn to log exercise and discussed fitness Apps like [employer]k which can help keep log off calories taken versus calories burned. Local food should be preferred. Discussed Dirty Dozen Versus Clean Fifteen. Discussed healthy supplements like fish oil, Tumeric, Curcumin, Melatonin, Resveratrol, Probiotics, Vitamin-D, Alpha-Lipoic acid, Vitamin-D and coconut oil. 2. It is important to exercise regularly. Is a good habit to walk at least 30 minutes a day. Gentle weightlifting with standard precautions to protect the back. Finding activity like cycling or hiking and get into the habit of engaging in it. Stretching before and after the exercises important. It is also important to contact me if there are any problems like shortness of breath, chest pain, back pain and joint or muscle pain associated with the exercise. 3. Discussed age appropriate screening guidelines. Colonoscopy needs to start at age 50 with stool for occult blood as appropriate. There is a new test that can test for genetic abnormalities in the stool sample, Cologuard. This would not replace a colonoscopy but could be used as a screening tool for patients who do not want a colonoscopy. We discussed the importance of early detection of colon cancer. 4. Discussed current guidelines with respect to breast examination, mammogram and pap smear for early detection of breast and cervical cancer. Patient advised to follow up with these appointments. 5. Discussed safe driving and no use of smart phone while driving 6. Age-appropriate immunizations were discussed. A tetanus booster is needed every 10 years. Flu vaccine is recommended every year just before the start of the flu season. Shingles vaccine is recommended after age 50 but not all insurances cover it. Pneumonia vaccine is given after age 65 unless there are certain comorbidities for which it is started earlier. 7. Diagnostic labs were discussed. These could include/not limited to CBC CMP and lipids with fasting blood glucose and insulin levels. Vitamin D and hemoglobin A1c testing might be appropriate. All quetsions answered to patients satisfaction. Patient verbalized understanding of diagnosis and treatments explained. To call sooner prior to next visit it any questions/concerns arise. Case discussed with collaborating physician Oleg Cintron who reviewed the assessment and plan. Chart, medications, labs, vital signs reviewed. Dictation was accomplished with the use of Mark[employer] voice recognition software, prone to medical misidentifications and grammatical errors. This is unintentional and the practitioner does try to identify and correct these, but some could still be present. Please do not hesitate to contact practitioner for clarification. 09/04/2024 Hordeolum externum o f left lower eyelid (ICD-10 - H00.015) # Ulcer on the lower gumline. Last visit treated with lidocaine, likely secondary to denture molds. Because it is not healing, will refer to oral surgeon for biopsy. # Stye of left eye: Treat with bacitracin ointment. Avoid erythromycin secondary to allergy. Has tried antihistamines for allergic conjunctivitis which was diagnosed by urgent care. Has been dealing with this for a month. If no improvement recommended seeing ophthalmology # Ostomy care: Recommended following with gastroenterology/nu rse for this.She does admit to occasional leakage. # Following with specialist to fit dentures properly. # Colitis following with gastroenterology, on methotrexate, infliximab, TPN still in place.Using Aquaphor on ostomy site due to dryness/redness of skin. # Seasonal allergies: On fluticasone, cetirizine # Chronic diarrhea: on oxycodone, recommended by gastroenterology for chronic diarrhea, requesting refill today. [employer] reviewed. Controlled substance contract signed 12/05/2023 # Back pain: Ordered x-ray last visit for which she did not obtain. Will reorder x-ray. potentially consider orthopedic referral/pain specialist referral. Discussed conservative treatments. Already on oxycodone for diarrhea.Ordered this in February, for which she did not obtain, reordered in May for which she did not obtain. She is still having concerns about back pain, discussed the importance of imaging prior to further treatment. # Asthma: Takes albuterol as needed # Nystatin powder as needed rash # History of breast cancer, controlled, gets mammograms annually.Ordered today. Patient to follow-up in 1 month, follow-up with oral surgeon in the meantime, and treat stye. All quetsions answered to patients satisfaction. Patient verbalized understanding of diagnosis and treatments explained. To call sooner prior to next visit it any questions/concerns arise. Case discussed with collaborating physician Oleg Cintron who reviewed the assessment and plan. Chart, medications, labs, vital signs reviewed. Dictation was accomplished with the use of [employer] voice recognition software, prone to medical misidentifications and grammatical errors. This is unintentional and the practitioner does try to identify and correct these, but some could still be present. Please do not hesitate to contact practitioner for clarification. Plan Of Treatment Pending Test Test Name Order Date Ultrasound : Breast, left 02/24/2019 Echocardiogram 10/23/2018 Echocardiogram 12/07/2022 Mammogram 10/18/2021 Mammogram 02/13/2019 X ray : Spines, lumbar 2 views 4 Protein Elec + Interp, Serum 02/07/2023 Lipid Panel 12/26/2018 Comp. Metabolic Panel (14) 12/26/2018 Comp. Metabolic Panel (14) 07/14/2019 Comp. Metabolic Panel (14) 10/05/2020 Hepatitis C antibody 07/14/2019 CBC 07/14/2019 CBC 10/05/2020 CBC 12/26/2018 HIV 07/14/2019 MAMMOGRAM, SCREENING 06/08/2024 MAMMOGRAM, SCREENING 03/13/2024 MAMMOGRAM, SCREENING 03/13/2024 Bone Density 03/13/2024 Bone Density 03/13/2024 Bone Density 06/08/2024 MRI : Lumbar and Thoracic Spines 025 Urinalysis 10/05/2020 EKG 12/14/2024 CBC (COMPLETE BLOOD COUNT) 01/05/2021 CBC (COMPLETE BLOOD COUNT) 08/12/2018 CBC (COMPLETE BLOOD COUNT) 11/21/2018 COMPREHENSIVE METABOLIC PANEL 11/21/2018 COMPREHENSIVE METABOLIC PANEL 08/12/2018 COMPREHENSIVE METABOLIC PANEL 01/05/2021 GC (N. GONORRHOEAE) AMP PROBE, URINE LIPID PANEL 01/05/2021 URINALYSIS W/REFLEX CULTURE 06/01/2021 URINALYSIS, COMPLETE 11/21/2018 URINALYSIS, COMPLETE 01/05/2021 Chest 2 Views Frontal and Lat 11/21/2018 UC XR Chest 4+ Views Complete 10/23/2018 XR L-Spine 2-3 Views 06/08/2024 Xray: Hip-Bilat With Pelvis 02/04/2018 URINE CULTURE 10/05/2020 LIPID PANEL, STANDARD 12/20/2021 LIPID PANEL, STANDARD 12/14/2024 LIPID PANEL, STANDARD 03/24/2025 LIPID PANEL, STANDARD 06/04/2023 IRON, TIBC AND FERRITIN PANEL 02/07/2023 LIPID PANEL W/REFL DIRECT LDL, CARDIO IQ (R) 03/21/2022 COMPREHENSIVE METABOLIC PANEL 03/21/2022 COMPREHENSIVE METABOLIC PANEL 12/14/2024 COMPREHENSIVE METABOLIC PANEL 12/07/2022 COMPREHENSIVE METABOLIC PANEL 11/16/2022 COMPREHENSIVE METABOLIC PANEL 12/20/2021 COMPREHENSIVE METABOLIC PANEL 06/04/2023 COMPREHENSIVE METABOLIC PANEL 03/24/2025 CBC (H/H, RBC, INDICES, WBC, PLT) 2022 CBC (INCLUDES DIFF/PLT) 06/04/2023 CBC (INCLUDES DIFF/PLT) 03/24/2025 CBC (INCLUDES DIFF/PLT) 12/20/2021 CBC (INCLUDES DIFF/PLT) 12/14/2024 CBC (INCLUDES DIFF/PLT) 03/21/2022 URINALYSIS, COMPLETE 03/21/2022 URINALYSIS, COMPLETE 12/14/2024 URINALYSIS, COMPLETE 12/20/2021 URINALYSIS, COMPLETE 06/08/2024 URINALYSIS, COMPLETE 03/24/2025 URINALYSIS, COMPLETE 06/04/2023 HEMOGLOBIN A1c 06/04/2023 HEMOGLOBIN A1c 03/24/2025 FOLATE, SERUM 02/07/2023 VITAMIN B12 02/07/2023 VITAMIN D,25-OH,TOTAL,IA 06/04/2023 B TYPE NATRIURETIC PEPTIDE (BNP) 023 Lumbar Spine 2 or 3 Views 03/13/2024 CT Chest W/ Contrast 12/05/2023 SERUM ELECTROPHORESIS 02/07/2023 Hemoglobin [id number] 12/14/2024 Future Test Test Name Order Date BILIRUBIN,TOTAL 02/06/2022 LIPID PANEL 02/06/2022 Next Appt Details Provider Name:SLOAN GARCIA, 06/21/2025 08:45:00 AM, [address], [place], [address], Insurance Providers Payer Name Payer Address Payer Phone Subscriber Number Group Number Insured Name Patient Relationship to Insured Coverage Start Date Coverage End Date Retired [employer] [address] [address] [place] [address] [id number] ISAMAR ROMERO Self - patient is the insured [place] [address] [place] [phone] [id number] ISAMAR ROMERO Self - patient is the insured Medical (General) History Medical History History ICD Code breast nodule,Lumpectomy 2006 Abdominal Hernia GERD Chronic diarrhea Recurrent UTI TIA Pulmonary embolism 2006, off anticoagula tion ostomy medical marijuana card bowel obstruction 2005 diverticulitis Left breast cancer 2006 History of tobacco use 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
--- OUTSIDE RECORDS SUMMARY | 2025-03-31 08:37 | XMS_ITS ---
Author Organization [facility] [place] Care Team Providers Care Canine Service Instructor Trainer Name Role Phone Francisco Javier Chilel Unavailable Unavailable Allergies and adverse reactions Code CodeSystem Substance Reaction Severity StartDate Concern Status 939778683 SNOMED CT Tetracyclines & Related Unknown 06/24/2017 active [place] Unknown 06/24/2017 active 7984 RXNORM Penicillin Unknown 06/24/2017 active 7052 RXNORM Morphine Unknown 06/24/2017 active Macrodantin Unknown 06/24/2017 active 6468 RXNORM Loperamide Unknown 06/24/2017 active 5933 RXNORM Iodine Unknown 06/24/2017 active Floxin Unknown 06/24/2017 active 4053 RXNORM Erythromycin Unknown 06/24/2017 active 2670 RXNORM Codeine Unknown 06/24/[address] Cephalosporins Unknown 06/24/2017 ac tive Bactrim Unknown 06/24/2017 active 1191 RXNORM Aspirin Unknown 06/24/2017 active 723 RXNORM Amoxicillin Unknown 06/24/2017 active Care Team Name Role Address Phone Organization Dates Francisco Javier Chilel PCP [address] [facility] [address], [place], [address], [place] (Office): [facility] [place] 06/20/2017 - 09/14/2017 Immunizations Immunization Status Vaccine Details Vaccine Code CodeSystem [place] Notes Influenza cancelled Influenza, high-dose, split virus, quadrivalent, injectable, preservative free 197 CVX created date: 06/24/2017 consent date: 06/24/2017 Pneumovax Dose 1 cancelled cre ated date: 06/24/2017 consent date: 06/24/2017 Mental Status Section Date Assessment Total Score Description 09/14/2017 BIMS 15 cognitively int act CAM 0 No delirium ind icated PHQ-9 00 09/13/2017 BIMS 15 cognitively int act CAM 0 No delirium ind icated PHQ-9 00 Problems Problem # Description Date of onset Resolved Date Code CodeSystem Concern Status 1 SKIN TRANSPLANT STATUS 08/30/[address] active 2 SYSTEMIC INFLAMMATORY RESPONSE SYNDROME (SIRS) OF NON-INFECTIOUS ORIGIN WITHOUT ACUTE ORGAN DYSFUNCTION 08/30/[address] active 3 ENTEROCOLITIS DUE TO CLOSTRIDIUM DIFFICILE, NOT SPECIFIED RECURRENT 08/14/[address] active 4 RESISTANCE TO MULTIPLE ANTIBIOTICS 08/14/20 17 09/06/[address] completed 5 UNSPECIFIED PROTEIN-CALORIE MALNUTRITION 06/25/[address] active 6 ABNORMAL WEIGHT LOSS 06/20/[address] active 7 ADULT FAILURE TO THRIVE 06/20/[address] active 8 ANEMIA, UNSPECIFIED 06/20/[address] active 9 DIARRHEA, UNSPECIFIED 06/20/[address] active 10 ENCOUNTER FOR ADJUSTMENT AND MANAGEMENT OF VASCULAR ACCESS DEVICE 06/20/[address] active 11 ENCOUNTER FOR ISSUE OF REPEAT PRESCRIPTION 06/20/[address] active 12 ENCOUNTER FOR SURGICAL AFTERCARE FOLLOWING SURGERY ON THE DIGESTIVE SYSTEM 06/20/[address] active 13 FISTULA OF INTESTINE 06/20/[address] active 14 MALIGNANT NEOPLASM OF UNSPECIFIED SITE OF UNSPECIFIED FEMALE BREAST 06/20/[address] active 15 URINARY TRACT INFECTION, SITE NOT SPECIFIED 06/20/[address] active Reason for Referral No Reasons for Referral Entered Social History Social History Observation Description Start Date End Date Code Code System Current Smoking Status Tobacco smoking consumption unknown 863201799 SNOMED CT Sex Assigned At Female 1945 [address]-2 [facility] Gender Identity Vital Signs Code Code System Vitals Name Values and Units Timing Information 1588-1 INC Respiratory Rate Value=16.0 Units=/m in 09/04/2017 8462-4 INC Blood Pressure-Diastolic Value=62 Un its=mmHg 09/04/2017 8480-6 [facility] Blood Pressure-Systolic Ofccu=206 Un its=mmHg 09/04/2017 8310-5 [facility] Body Temperature Value=98.1 Units= F 09/04/2017 8867-4 [facility] Heart rate Value=72.0 Units=/min 88033-0 [facility] O2 % BldC Oximetry Value=96.0 Units= % 09/04/2017 28493-5 [facility] Pain Level Value=0.0 09/04/2017 01221-2 LOINC Weight Bbnzs=048.6 Units=Lbs 8302-2 INC Height Value=62.0 Units=Inches 06/20/2017
== END 2025-03-31 09:14 | disposition home or self-care (01) ==
LOC: HO.PMC 08:31
PROVIDERS: PCP Internal Medicine; Visit Provider Registered Nurse Emergency
DX: M54.6 Pain in thoracic spine (principal); G89.4 Chronic pain syndrome; M47.814 Spondylosis without myelopathy or radiculopathy, thoracic region
CPT/HCPCS: 99204; G2211

== ENCOUNTER → 2025-03-31 08:31 | Outpatient (BNVA) | payer MEDICARE, MEDICAID, SELFPAY | PROVIDERS: PCP Internal Medicine; Visit Provider Registered Nurse Emergency | DX: M54.6 Pain in thoracic spine (principal); M47.814 Spondylosis without myelopathy or radiculopathy, thoracic region; G89.4 Chronic pain syndrome | CPT/HCPCS: 99202 ==